=== PATIENT | male | born 1965 | race Caucasian/White ===

== ENCOUNTER 2017-08-31 18:23 | Emergency (ER) | payer MEDICAID ==
[~2017-08-31] VITALS: Ht 190.5 cm; Wt 80.0 kg
[~2017-08-31 18:23] MED LIST: ACET-2006 PO; CLIN-79 PO; GABA-532 PO; INSU100V36 SQ; LANTUS SQ
[2017-08-31 18:26] VITALS: BP 141/81
[2017-08-31] MEDS ORDERED: aspirin 81mg tab.chew PO ONE (18:30)
[2017-08-31 19:01] LABS: BASOPHILS # (AUTO) 0.1 X10'3 (0-0.2); EOSINOPHILS # (AUTO) 1.1 X10'3 (0-0.9); EOSINOPHILS % (AUTO) 10.4 % (0-6); HEMATOCRIT 39.2 % (42.0-52.0); HEMOGLOBIN 13.8 g/dl (14.0-17.9); LYMPHOCYTES # (AUTO) 2.8 X10'3 (1.1-4.8); LYMPHOCYTES % (AUTO) 26.5 % (21-51); MEAN CORPUSCULAR HGB CONC 35.2 % (33.0-36.5); MONOCYTES # (AUTO) 0.7 X10'3 (0-0.9); MONOCYTES % (AUTO) 6.8 % (2-12); NEUTROPHILS # (AUTO) 5.9 X10'3 (1.8-7.7); NEUTROPHILS % (AUTO) 55.3 % (42-75); PLATELET COUNT 216 X10'3 (140-440); RED BLOOD COUNT 4.31 X10'6 (4.70-6.10); RED CELL DISTRIBUTION WIDTH 12.5 % (11.5-14.5); WHITE BLOOD COUNT 10.6 X10'3 (4.5-11.0)
[2017-08-31 19:12] LABS: INR 0.9 INR; PARTIAL THROMBOPLASTIN TIME 25 SECONDS (22-32); PROTHROMBIN TIME 9.7 SECONDS (9.0-12.0)
[2017-08-31 19:16] LABS: ALANINE AMINOTRANSFERASE 26 U/L (12-78); ALBUMIN 3.7 G/DL (3.4-5.0); ALBUMIN/GLOBULIN RATIO 1.1 (1.1-1.5); ALKALINE PHOSPHATASE 71 IU/L (46-116); ANION GAP 13 (8-16); ASPARTATE AMINO TRANSFERASE 18 U/L (10-37); BILIRUBIN,TOTAL 0.3 MG/DL (0.1-1.0); BLOOD UREA NITROGEN 25 MG/DL (7-18); BUN/CREATININE RATIO 24.5 (5.4-32.0); CALCIUM 8.9 MG/DL (8.5-10.1); CHLORIDE 99 MMOL/L (99-107); CREATININE 1.02 MG/DL (0.60-1.10); GLUCOSE 388 MG/DL (70-104); POTASSIUM 4.6 MMOL/L (3.5-5.1); SODIUM 134 MMOL/L (135-145); TOTAL CARBON DIOXIDE 21.8 MMOL/L (24-32); TOTAL PROTEIN 7.1 G/DL (6.4-8.2); eGFR 77 ML/MIN
== END 2017-08-31 21:33 | disposition left against medical advice (07) ==
LOC: ER 18:23
DX: R07.9 Chest pain, unspecified (principal); Z53.21 Procedure and treatment not carried out due to patient leaving prior to being seen by health care provider
CPT/HCPCS: 36415; 71045; 80053; 84484; 85025; 85610; 85730; 93005; 99281

== ENCOUNTER 2019-03-23 09:34 | Emergency (ER) | payer MEDICAID, OTHER ==
[~2019-03-23] VITALS: Ht 190.5 cm; Wt 87.0 kg
[~2019-03-23 09:34] MED LIST changes: -ACET-2006 PO; +ASPI-1265 PO; -CLIN-79 PO; +HUM7525 SQ; -INSU100V36 SQ; +LISI40TA4 PO
[2019-03-23 10:01] VITALS: BP 163/100
[2019-03-23 10:09] LABS: BASOPHILS # (AUTO) 0.1 X10'3 (0-0.2); BASOPHILS % (AUTO) 1.1 % (0-1); EOSINOPHILS # (AUTO) 0.7 X10'3 (0-0.9); EOSINOPHILS % (AUTO) 5.9 % (0-6); HEMATOCRIT 42.6 % (42.0-52.0); HEMOGLOBIN 14.7 g/dl (14.0-17.9); LYMPHOCYTES # (AUTO) 1.9 X10'3 (1.1-4.8); LYMPHOCYTES % (AUTO) 15.6 % (21-51); MEAN CORPUSCULAR HEMOGLOBIN 30.9 PG (27.0-31.0); MEAN CORPUSCULAR HGB CONC 34.5 g/dL (33.0-36.5); MEAN CORPUSCULAR VOLUME 89.5 FL (78-98); MEAN PLATELET VOLUME 8.5 FL (7.4-10.4); MONOCYTES # (AUTO) 0.7 X10'3 (0-0.9); MONOCYTES % (AUTO) 5.5 % (2-12); NEUTROPHILS # (AUTO) 8.7 X10'3 (1.8-7.7); NEUTROPHILS % (AUTO) 71.9 % (42-75); PLATELET COUNT 278 X10'3 (140-440); RED BLOOD COUNT 4.76 X10'6 (4.70-6.10); RED CELL DISTRIBUTION WIDTH 12.7 % (11.5-14.5); WHITE BLOOD COUNT 12.1 X10'3 (4.5-11.0)
[2019-03-23] MEDS ORDERED: enoxaparin 100mg/ml syringe SUBCUT ONE (10:25)
[2019-03-23 10:27] LABS: ALANINE AMINOTRANSFERASE 17 U/L (12-78); ALBUMIN 3.3 G/DL (3.4-5.0); ALBUMIN/GLOBULIN RATIO 0.9 (1.1-1.5); ALKALINE PHOSPHATASE 108 IU/L (46-116); ANION GAP 8 (8-16); ASPARTATE AMINO TRANSFERASE 13 U/L (10-37); BILIRUBIN,TOTAL 0.5 MG/DL (0.1-1.0); BLOOD UREA NITROGEN 16 MG/DL (7-18); BUN/CREATININE RATIO 18.4 (5.4-32.0); CALCIUM 8.8 MG/DL (8.5-10.1); CHLORIDE 102 MMOL/L (99-107); CREATININE 0.87 MG/DL (0.60-1.10); GLUCOSE 254 MG/DL (70-104); POTASSIUM 4.1 MMOL/L (3.5-5.1); SODIUM 135 MMOL/L (135-145); TOTAL CARBON DIOXIDE 24.9 MMOL/L (24-32); TOTAL PROTEIN 7.1 G/DL (6.4-8.2); eGFR > 90 ML/MIN
[2019-03-23] MEDS ORDERED: ipratropium/albuterol 3ml nebule NEB ONE (10:40)
[2019-03-23] MEDS ORDERED: ALBU8.5H8 IH (10:41)
[2019-03-23] MEDS ORDERED: apixaban 5mg tablet PO SCH (20:00)
== END 2019-03-23 12:12 | disposition home or self-care (01) ==
LOC: ER 10:27
DX: J45.901 Unspecified asthma with (acute) exacerbation (principal); I25.10 Atherosclerotic heart disease of native coronary artery without angina pectoris; I25.2 Old myocardial infarction; E11.42 Type 2 diabetes mellitus with diabetic polyneuropathy; F17.210 Nicotine dependence, cigarettes, uncomplicated; I12.9 Hypertensive chronic kidney disease with stage 1 through stage 4 chronic kidney disease, or unspecified chronic kidney disease; E11.22 Type 2 diabetes mellitus with diabetic chronic kidney disease; N18.9 Chronic kidney disease, unspecified; Z86.19 Personal history of other infectious and parasitic diseases; Z85.47 Personal history of malignant neoplasm of testis; Z98.890 Other specified postprocedural states; Z88.6 Allergy status to analgesic agent; Z79.82 Long term (current) use of aspirin; Z79.4 Long term (current) use of insulin; Z79.899 Other long term (current) drug therapy
CPT/HCPCS: 36415; 71045; 80053; 83880; 84484; 85025; 93005; 94640; 99284

== ENCOUNTER 2019-07-24 13:59 | Outpatient (CLI) | payer MEDICAID ==
[~2019-07-24 13:59] MED LIST changes: +ALBU8.5H8 IH
== END 2019-07-24 23:59 | disposition home or self-care (01) ==
LOC: RAD 13:59
PROVIDERS: ATTEND Family Medicine
DX: R56.9 Unspecified convulsions (principal)
CPT/HCPCS: 95816

== ENCOUNTER 2019-12-13 13:31 | Emergency (ER) | payer MEDICAID ==
[~2019-12-13] VITALS: Ht 188 cm; Wt 90.9 kg
[2019-12-13 13:44] VITALS: BP 153/93
--- NOTE | 2019-12-13 13:57 | NUR ---
Spoke with Dr. Castillo regarding patients injury, Dr. Castillo stated to place verbal order for CT head.
[2019-12-13] MEDS ORDERED: ondansetron 4mg rapidly disintigrating tab PO ONE (14:15)
[2019-12-13] MEDS ORDERED: ONDA4TAB6 PO (14:30)
== END 2019-12-13 14:46 | disposition home or self-care (01) ==
LOC: ER 13:32
DX: S06.0X1A Concussion with loss of consciousness of 30 minutes or less, initial encounter (principal); R11.2 Nausea with vomiting, unspecified; I25.10 Atherosclerotic heart disease of native coronary artery without angina pectoris; I25.2 Old myocardial infarction; E11.42 Type 2 diabetes mellitus with diabetic polyneuropathy; I12.0 Hypertensive chronic kidney disease with stage 5 chronic kidney disease or end stage renal disease; E11.22 Type 2 diabetes mellitus with diabetic chronic kidney disease; N18.6 End stage renal disease; Z98.890 Other specified postprocedural states; Z88.6 Allergy status to analgesic agent; Z79.82 Long term (current) use of aspirin; Z79.4 Long term (current) use of insulin; Z79.899 Other long term (current) drug therapy; W22.8XXA Striking against or struck by other objects, initial encounter; Y93.89 Activity, other specified; Y92.89 Other specified places as the place of occurrence of the external cause; Y99.8 Other external cause status
CPT/HCPCS: 70450; 99284

== ENCOUNTER 2020-01-10 14:35 | Inpatient (IN) | payer MEDICAID ==
[~2020-01-10] VITALS: Ht 190.5 cm; Wt 93.2 kg
[~2020-01-10 14:35] MED LIST changes: +ONDA4TAB6 PO
[2020-01-10 15:29] LABS: ALANINE AMINOTRANSFERASE 18 U/L (12-78); ALBUMIN 3.3 G/DL (3.4-5.0); ALBUMIN/GLOBULIN RATIO 0.8 (1.1-1.5); ALKALINE PHOSPHATASE 120 IU/L (46-116); ANION GAP 7 (8-16); ASPARTATE AMINO TRANSFERASE 18 U/L (10-37); BILIRUBIN,TOTAL 0.3 MG/DL (0.1-1.0); BLOOD UREA NITROGEN 8 MG/DL (7-18); BUN/CREATININE RATIO 8.1 (5.4-32.0); CALCIUM 8.6 MG/DL (8.5-10.1); CHLORIDE 106 MMOL/L (99-107); CREATININE 0.99 MG/DL (0.60-1.10); GLUCOSE 101 MG/DL (70-104); POTASSIUM 4.3 MMOL/L (3.5-5.1); SODIUM 139 MMOL/L (135-145); TOTAL CARBON DIOXIDE 26.3 MMOL/L (24-32); TOTAL PROTEIN 7.2 G/DL (6.4-8.2); eGFR 79 ML/MIN
[2020-01-10 15:30] LABS: BASOPHILS # (AUTO) 0.1 X10'3 (0-0.2); BASOPHILS % (AUTO) 1.5 % (0-1); EOSINOPHILS # (AUTO) 0.3 X10'3 (0-0.9); EOSINOPHILS % (AUTO) 3.1 % (0-6); HEMATOCRIT 47.3 % (42.0-52.0); HEMOGLOBIN 16.1 g/dl (14.0-17.9); LYMPHOCYTES # (AUTO) 1.8 X10'3 (1.1-4.8); LYMPHOCYTES % (AUTO) 19.1 % (21-51); MEAN CORPUSCULAR HEMOGLOBIN 31.7 PG (27.0-31.0); MEAN CORPUSCULAR HGB CONC 34.1 g/dL (33.0-36.5); MEAN CORPUSCULAR VOLUME 93.1 FL (78-98); MEAN PLATELET VOLUME 8.5 FL (7.4-10.4); MONOCYTES # (AUTO) 0.8 X10'3 (0-0.9); MONOCYTES % (AUTO) 7.9 % (2-12); NEUTROPHILS # (AUTO) 6.5 X10'3 (1.8-7.7); NEUTROPHILS % (AUTO) 68.4 % (42-75); PLATELET COUNT 271 X10'3 (140-440); RED BLOOD COUNT 5.08 X10'6 (4.70-6.10); RED CELL DISTRIBUTION WIDTH 13.6 % (11.5-14.5); WHITE BLOOD COUNT 9.5 X10'3 (4.5-11.0)
[2020-01-10] MEDS ORDERED: aspirin 81mg tab.chew PO ONE (15:50)
[2020-01-10] MEDS ORDERED: ondansetron/PF 4mg/2ml inj IV ONE (15:50)
[2020-01-10] MEDS ORDERED: metoprolol tartrate 1mg/ml inj IV ONE (15:50)
[2020-01-10] MEDS ORDERED: nitroGLYCERIN 0.4mg SUBLingual tab SL PRN ×2 (15:55→18:35)
[2020-01-10 16:02] LABS: LIPASE 160 U/L (73-393)
[2020-01-10] MEDS ORDERED: iohexol 350MG/ML 100ml bottle IV ONE (16:28)
--- NOTE | 2020-01-10 17:04 | NUR ---
Pt flagged down KHADRA Moss RN, stating he felt his blood sugar was low. Accucheck performed with reading of 40. As pt was feeling as though he would lose consciousness, D50 was given.
--- NOTE | 2020-01-10 17:40 | NUR ---
pt states he feels better after having yogurt and a sandwich.
[2020-01-10] MEDS ORDERED: aminophylline 250mg/10ml inj. IV PRN (18:35)
[2020-01-10] MEDS ORDERED: metoprolol tartrate 1mg/ml inj IV PRN (18:35)
[2020-01-10] MEDS ORDERED: potassium Cl 20 mEq SR tablet PO PRN ×2 (18:35)
[2020-01-10] MEDS ORDERED: magnesium 2GM in 50ml NS 50 ML IV PRN (18:35)
[2020-01-10] MEDS ORDERED: dextrose ORAL solution 15 GM/59 ML bottle PO PRN ×2 (18:35)
[2020-01-10] MEDS ORDERED: ondansetron/PF 4mg/2ml inj IV PRN (18:35)
[2020-01-10] MEDS ORDERED: bisacodyl 10mg suppository rectal RC PRN (18:35)
[2020-01-10] MEDS ORDERED: MESSAGE TO PHARMACY PO ONE (18:35)
[2020-01-10] MEDS ORDERED: magnesium Cl slow-release 64mg tablet PO PRN (18:35)
[2020-01-10] MEDS ORDERED: acetaminophen 650mg rectal suppository RC PRN (18:35)
[2020-01-10] MEDS ORDERED: morphine 2 MG/ML inj. syringe IV PRN ×2 (18:35)
[2020-01-10] MEDS ORDERED: glucagon, human recombinant 1mg kit SUBCUT PRN (18:35)
[2020-01-10] MEDS ORDERED: potassium CL 10mEq/100ml bag 100 ML IV PRN ×2 (18:35)
[2020-01-10] MEDS ORDERED: HYDROcodone/acetaminophen 10/325mg tab PO PRN (18:35)
[2020-01-10] MEDS ORDERED: regadenoson 0.4mg/5ml syringe IV PRN (18:35)
[2020-01-10] MEDS ORDERED: magnesium 4gm in 100ml NS 100 ML IV PRN (18:35)
[2020-01-10] MEDS ORDERED: dextrose 50%-water 50ml dispensing syringe IV PRN ×2 (18:35)
[2020-01-10] MEDS ORDERED: acetaminophen 325mg tablet PO PRN ×2 (18:35)
[2020-01-10] MEDS ORDERED: HYDROcodone/acetaminophen 5mg/325mg tablet PO PRN (18:35)
[2020-01-10] MEDS ORDERED: magnesium hydroxide 30ml (MOM) UD suspension PO PRN (18:35)
[2020-01-10] MEDS ORDERED: insulin Lispro (HumaLOG) vial - multi-dose SQ SCH (18:35)
[2020-01-10] MEDS ORDERED: diphenhydrAMINE 25mg capsule PO PRN (18:35)
[2020-01-10] MEDS ORDERED: mag hydrox/Alum hydrox/simeth 30ml oral suspension PO PRN (18:35)
[2020-01-10] MEDS ORDERED: metoprolol succinate 25mg (24-HOUR) SR. Tablet PO SCH (18:40)
[2020-01-10] MEDS: K and/or MAG REPLACEMENT MC SCH (18:44)
[2020-01-10] MEDS: normal saline 1000ml 1,000 ML IV SCH (18:54)
[2020-01-10] MEDS: metoprolol succinate 25mg (24-HOUR) SR. Tablet PO SCH (18:54)
--- NOTE | 2020-01-10 18:54 | NUR ---
given dinner tray. bp 185/99, metoprolol 50 mg given and no maintenance fluids started, ns @100. awaiting ipa
[2020-01-10 18:59] LABS: HEMOGLOBIN A1C 7.4 % (4.5-6.2)
--- NOTE | 2020-01-10 19:51 | NUR ---
hospitalist at bedside. report called by carine hernandez. pt placed in wheelchair.
[2020-01-10 20:00] VITALS: BP 169/98
[2020-01-10] MEDS: heparin, porcine 5000 units/ml vial SQ SCH (20:00)
[2020-01-10 20:30] VITALS: BP 173/88
[2020-01-10] MEDS ORDERED: insulin glargine (Lantus) pen - multi-dose SQ SCH (21:00)
[2020-01-11] VITALS (16 sets, daily range): BP systolic 142–190; BP diastolic 62–89
--- NOTE | 2020-01-11 03:36 | NUR ---
pt rang call light and requested to get his blood sugar checked, BG 46, D50 25 ml given, orange juice given.
--- NOTE | 2020-01-11 03:39 | NUR ---
NOTIFIED PAGER ID: [phone] MESSAGE: [phone] JASON JACKSON. CRITICAL LOW BLOOD SUGAR OF 46. PUSHED 25ML OF D50 PER HYPOGLYCEMIA PROTOCOL. BLOOD SUGAR 110 NOW
[2020-01-11 04:06] LABS: BASOPHILS # (AUTO) 0.1 X10'3 (0-0.2); EOSINOPHILS # (AUTO) 0.5 X10'3 (0-0.9); EOSINOPHILS % (AUTO) 5.5 % (0-6); HEMATOCRIT 45.3 % (42.0-52.0); HEMOGLOBIN 15.4 g/dl (14.0-17.9); LYMPHOCYTES # (AUTO) 2.4 X10'3 (1.1-4.8); LYMPHOCYTES % (AUTO) 24.4 % (21-51); MEAN CORPUSCULAR HEMOGLOBIN 31.9 PG (27.0-31.0); MEAN CORPUSCULAR HGB CONC 34.1 g/dL (33.0-36.5); MEAN CORPUSCULAR VOLUME 93.7 FL (78-98); MEAN PLATELET VOLUME 8.2 FL (7.4-10.4); MONOCYTES # (AUTO) 0.8 X10'3 (0-0.9); MONOCYTES % (AUTO) 8.2 % (2-12); NEUTROPHILS # (AUTO) 5.9 X10'3 (1.8-7.7); NEUTROPHILS % (AUTO) 60.9 % (42-75); PLATELET COUNT 228 X10'3 (140-440); RED BLOOD COUNT 4.83 X10'6 (4.70-6.10); RED CELL DISTRIBUTION WIDTH 13.6 % (11.5-14.5); WHITE BLOOD COUNT 9.6 X10'3 (4.5-11.0)
[2020-01-11 04:17] LABS: ALANINE AMINOTRANSFERASE 16 U/L (12-78); ALBUMIN 2.9 G/DL (3.4-5.0); ALBUMIN/GLOBULIN RATIO 0.8 (1.1-1.5); ALKALINE PHOSPHATASE 113 IU/L (46-116); ANION GAP 5 (8-16); ASPARTATE AMINO TRANSFERASE 17 U/L (10-37); BILIRUBIN,TOTAL 0.3 MG/DL (0.1-1.0); BLOOD UREA NITROGEN 10 MG/DL (7-18); BUN/CREATININE RATIO 10.5 (5.4-32.0); CALCIUM 8.7 MG/DL (8.5-10.1); CHLORIDE 107 MMOL/L (99-107); CREATININE 0.95 MG/DL (0.60-1.10); GLUCOSE 104 MG/DL (70-104); POTASSIUM 3.9 MMOL/L (3.5-5.1); SODIUM 141 MMOL/L (135-145); TOTAL PROTEIN 6.7 G/DL (6.4-8.2); eGFR 83 ML/MIN
[2020-01-11 04:21] LABS: CHOL/HDL RATIO 2.1 (0.00-4.99); CHOLESTEROL 119 MG/DL (0-200); HDL CHOLESTEROL 57 MG/DL (35-60); LDL CHOLESTEROL 55 MG/DL (50-100); PHOSPHORUS 3.9 MG/DL (2.3-4.5); TRIGLYCERIDES 52 MG/DL (20-135)
[2020-01-11] MEDS: normal saline 1000ml 1,000 ML IV SCH (04:28)
--- NOTE | 2020-01-11 06:13 | NUR ---
Problems reprioritized. Patient report given, questions answered & plan of care reviewed with Raj BRUNSON.
--- NOTE | 2020-01-11 06:16 | NUR ---
Patient in room MED 314. I have received report from NANNETTE Sparks and had the opportunity to ask questions and assume patient care.
--- NOTE | 2020-01-11 07:26 | NUR ---
DR. OREILLY PAGED: PAGER ID: [phone] MESSAGE: [phone]: Rocael JACKSON - scheduled for [facility] this AM. issues with LOW/HIGH BG; 46 @ 0330, currently 309 before breakfast. hx DM1. nurse Misa [phone]
[2020-01-11] MEDS ORDERED: aspirin 81mg tablet.DR PO SCH (08:00)
[2020-01-11] MEDS ORDERED: lisinopril 20mg tablet PO SCH (08:00)
[2020-01-11] MEDS ORDERED: atorvastatin 20mg tablet PO SCH (08:00)
[2020-01-11] MEDS: heparin, porcine 5000 units/ml vial SQ SCH (08:00)
[2020-01-11] MEDS: K and/or MAG REPLACEMENT MC SCH (08:14)
[2020-01-11] MEDS: metoprolol succinate 25mg (24-HOUR) SR. Tablet PO SCH (08:18)
[2020-01-11] MEDS ORDERED: pantoprazole 40mg Tablet.DR PO SCH (09:50)
--- NOTE | 2020-01-11 10:35 | NUR ---
PATIENT TO NUC MED FOR HAILEE
--- NOTE | 2020-01-11 12:42 | NUR ---
PAGER ID: [phone] MESSAGE: [phone] Rocael Benedict: BP 173. NANNETTE Anthony Ext [phone]
--- NOTE | 2020-01-11 13:39 | NUR ---
dr. perez paged: PAGER ID: [phone] MESSAGE: [phone]: brian crowder (-), low EF 38%; ok to eat? nurse morenita [phone]
[2020-01-11] MEDS ORDERED: PANT40TA4 PO (13:43)
[2020-01-11] MEDS ORDERED: ASPI-1071 PO (13:43)
--- NOTE | 2020-01-11 13:50 | NUR ---
patient left AMA, refused to sign AMA paperwork, witnessed patient rip PIV from arm and walk out hospital lobby entrance
[2020-01-11] MEDS ORDERED: METO-395 PO (13:56)
--- NOTE | 2020-01-11 14:10 | NUR ---
Patient left ama refused to sign papers. Took IV out himself.
--- NOTE | 2020-01-11 14:30 | NUR ---
DM Consult: Pt admit w/ chest pain hx T1DM A1C 7.4. Pt has had low Glu this admit without receiving any Glu/meal coverage fluctuating from 40's twice up to 309 currently following dex administration. Pt does have heavy etoh hx which may explain frequent low's; RD d/w RN regarding thiamin, folic, MVI if MD agreeable. Hx diarrhea taking creon at home for pancreatic insufficiency per EMR; diarrhea also could be r/t etoh use as well. Pt seen by RD for written/verbal DM ed w/ RD contact information provided. Pt has had insulin pump 15 years ago but did not like it so uses injections. RD encouraged pt to d/w PCP regarding sap consultant for optimal DM management. Pt passive during ed and reports no questions at this time. Addendum: 01/11/20 at [address] Amended: Links added.
== END 2020-01-11 14:00 | disposition left against medical advice (07) | DRG 198 ==
LOC: ER 14:36 → ED HOLD 16:44 → MED 3N 20:00
PROVIDERS: ADMIT Family Medicine; ATTEND Family Medicine
PROC: 4A02XM4 Measurement of Cardiac Total Activity, External Approach (ICD-10-PCS; principal; 2020-01-11)
PROC: 3E033HZ Introduction of Radioactive Substance into Peripheral Vein, Percutaneous Approach (ICD-10-PCS; 2020-01-11)
DX: R07.89 Other chest pain (principal); I12.9 Hypertensive chronic kidney disease with stage 1 through stage 4 chronic kidney disease, or unspecified chronic kidney disease; I25.10 Atherosclerotic heart disease of native coronary artery without angina pectoris; N18.9 Chronic kidney disease, unspecified; J44.9 Chronic obstructive pulmonary disease, unspecified; I16.0 Hypertensive urgency; E10.649 Type 1 diabetes mellitus with hypoglycemia without coma; E10.42 Type 1 diabetes mellitus with diabetic polyneuropathy; E10.22 Type 1 diabetes mellitus with diabetic chronic kidney disease; E10.311 Type 1 diabetes mellitus with unspecified diabetic retinopathy with macular edema; I25.2 Old myocardial infarction; Z87.11 Personal history of peptic ulcer disease; Z86.73 Personal history of transient ischemic attack (TIA), and cerebral infarction without residual deficits; Z85.47 Personal history of malignant neoplasm of testis; Z83.3 Family history of diabetes mellitus; Z82.49 Family history of ischemic heart disease and other diseases of the circulatory system; Z79.899 Other long term (current) drug therapy; Z79.4 Long term (current) use of insulin; Z72.0 Tobacco use; Z53.29 Procedure and treatment not carried out because of patient's decision for other reasons
CPT/HCPCS: 36415; 71045; 71275; 78452; 80053; 80061; 82948; 83036; 83690; 83735; 83880; 84100; 84484; 85025; 87081; 93005; 93017; 93306; 99285; A9500; G0378; J0280; J1815; J2405; J2785; J3490; J7030; Q9967

== ENCOUNTER 2020-02-17 21:31 | Inpatient (IN) | payer MEDICAID ==
[~2020-02-17] VITALS: Ht 190.5 cm; Wt 95.9 kg
[~2020-02-17 21:31] MED LIST changes: -ALBU8.5H8 IH; +ASPI-1071 PO; -ASPI-1265 PO; -GABA-532 PO; +METO-395 PO; -ONDA4TAB6 PO; +PANT40TA54 PO
[2020-02-17 22:16] LABS: BASOPHILS # (AUTO) 0.1 X10'3 (0-0.2); BASOPHILS % (AUTO) 0.7 % (0-1); EOSINOPHILS % (AUTO) 7.6 % (0-6); HEMOGLOBIN 15.2 g/dl (14.0-17.9); LYMPHOCYTES # (AUTO) 2.5 X10'3 (1.1-4.8); LYMPHOCYTES % (AUTO) 19.3 % (21-51); MEAN CORPUSCULAR HEMOGLOBIN 32.4 PG (27.0-31.0); MEAN CORPUSCULAR HGB CONC 33.9 g/dL (33.0-36.5); MEAN CORPUSCULAR VOLUME 95.7 FL (78-98); MEAN PLATELET VOLUME 8.9 FL (7.4-10.4); MONOCYTES # (AUTO) 0.8 X10'3 (0-0.9); MONOCYTES % (AUTO) 6.2 % (2-12); NEUTROPHILS # (AUTO) 8.5 X10'3 (1.8-7.7); NEUTROPHILS % (AUTO) 66.2 % (42-75); PLATELET COUNT 269 X10'3 (140-440); WHITE BLOOD COUNT 12.9 X10'3 (4.5-11.0)
[2020-02-17 22:43] LABS: ALANINE AMINOTRANSFERASE 22 U/L (12-78); ALBUMIN 3.1 G/DL (3.4-5.0); ALBUMIN/GLOBULIN RATIO 0.8 (1.1-1.5); ALKALINE PHOSPHATASE 93 IU/L (46-116); ANION GAP 6 (8-16); ASPARTATE AMINO TRANSFERASE 16 U/L (10-37); BILIRUBIN,TOTAL 0.2 MG/DL (0.1-1.0); BLOOD UREA NITROGEN 30 MG/DL (7-18); CALCIUM 9.1 MG/DL (8.5-10.1); CHLORIDE 104 MMOL/L (99-107); CREATININE 1.11 MG/DL (0.60-1.10); GLUCOSE 208 MG/DL (70-104); POTASSIUM 4.3 MMOL/L (3.5-5.1); SODIUM 137 MMOL/L (135-145); TOTAL CARBON DIOXIDE 27.4 MMOL/L (24-32); TOTAL PROTEIN 6.8 G/DL (6.4-8.2); eGFR 69 ML/MIN
[2020-02-18] MEDS ORDERED: potassium Cl 20 mEq SR tablet PO PRN ×2 (00:05)
[2020-02-18] MEDS ORDERED: nitroGLYCERIN 0.4mg SUBLingual tab SL PRN (00:05)
[2020-02-18] MEDS ORDERED: HYDROcodone/acetaminophen 10/325mg tab PO PRN (00:05)
[2020-02-18] MEDS ORDERED: LORazepam 2 mg/ml vial IV PRN (00:05)
[2020-02-18] MEDS ORDERED: ondansetron/PF 4mg/2ml inj IV PRN (00:05)
[2020-02-18] MEDS ORDERED: aminophylline 250mg/10ml inj. IV PRN (00:05)
[2020-02-18] MEDS ORDERED: magnesium 2GM in 50ml NS 50 ML IV PRN (00:05)
[2020-02-18] MEDS ORDERED: metoprolol tartrate 1mg/ml inj IV PRN (00:05)
[2020-02-18] MEDS ORDERED: LORazepam 1 MG tablet PO PRN (00:05)
[2020-02-18] MEDS ORDERED: acetaminophen 325mg tablet PO PRN ×2 (00:05)
[2020-02-18] MEDS ORDERED: potassium CL 10mEq/100ml bag 100 ML IV PRN ×2 (00:05)
[2020-02-18] MEDS ORDERED: HYDROcodone/acetaminophen 5mg/325mg tablet PO PRN (00:05)
[2020-02-18] MEDS ORDERED: morphine 2 MG/ML inj. syringe IV PRN ×2 (00:05)
[2020-02-18] MEDS ORDERED: dextrose 50%-water 50ml dispensing syringe IV PRN ×3 (00:05→00:20)
[2020-02-18] MEDS ORDERED: magnesium Cl slow-release 64mg tablet PO PRN (00:05)
[2020-02-18] MEDS ORDERED: magnesium 4gm in 100ml NS 100 ML IV PRN (00:05)
[2020-02-18] MEDS ORDERED: glucagon, human recombinant 1mg kit SUBCUT PRN (00:20)
[2020-02-18] MEDS ORDERED: MESSAGE TO PHARMACY PO ONE (00:20)
[2020-02-18] MEDS ORDERED: dextrose ORAL solution 15 GM/59 ML bottle PO PRN ×2 (00:20)
[2020-02-18] MEDS ORDERED: insulin Lispro (HumaLOG) vial - multi-dose SQ SCH (00:20)
[2020-02-18] MEDS: normal saline 1000ml 1,000 ML IV SCH ×2 (00:42→10:05)
[2020-02-18 02:02] LABS: HEMOGLOBIN A1C 7.8 % (4.5-6.2)
--- NOTE | 2020-02-18 03:11 | NUR ---
Patient in room ED 8. I have received report from Renetta BRUNSON and had the opportunity to ask questions and assume patient care.
[2020-02-18 04:24] LABS: URINE AMPHETAMINE SCREEN NEGATIVE (Neg); URINE BARBITUATE SCREEN NEGATIVE (Neg); URINE BENZODIAZEPINES SCREEN NEGATIVE (Neg); URINE CANNABINOID SCREEN NEGATIVE (Neg); URINE COCAINE SCREEN NEGATIVE (Neg); URINE METHADONE SCREEN NEGATIVE (Neg); URINE OPIATE SCREEN NEGATIVE (Neg); URINE PHENCYCLIDINE SCREEN NEGATIVE (Neg)
[2020-02-18 04:45] VITALS: BP 136/62
[2020-02-18] MEDS ORDERED: regadenoson 0.4mg/5ml syringe IV ONE (06:00)
--- NOTE | 2020-02-18 06:05 | NUR ---
Patient in room PCU 3013. I have received report from Merlene BRUNSON and had the opportunity to ask questions and assume patient care. Patient resting in bed, offers no complaints, will continue to monitor.
--- NOTE | 2020-02-18 06:06 | NUR ---
Problems reprioritized. Patient report given, questions answered & plan of care reviewed with Kristin BRUNSON.
[2020-02-18 06:50] VITALS: BP 158/73
[2020-02-18] MEDS ORDERED: pantoprazole 40mg Tablet.DR PO SCH (08:00)
[2020-02-18] MEDS ORDERED: heparin, porcine 5000 units/ml vial SQ SCH (08:00)
[2020-02-18] MEDS ORDERED: K and/or MAG REPLACEMENT MC SCH (08:00)
--- NOTE | 2020-02-18 09:22 | NUR ---
promotional table spacer PAGER ID: [phone] MESSAGE: Jak Vizcaino. Pt had negative farzaneh Jan 10, Nuc. Med said they did not want to do the ordered Farzaneh, Please advise. Kristin [phone]
--- NOTE | 2020-02-18 12:29 | NUR ---
Patient was discharge home at 1223. PIV was removed and tele was d/c'd, all belongings were sent with patient, discharge education and packet was reviewed before signing, and patient left via private vehicle.
[2020-02-18] MEDS ORDERED: insulin glargine (Lantus) pen - multi-dose SQ SCH (21:00)
[2020-02-18] MEDS ORDERED: temazepam 15mg capsule PO PRN (21:00)
== END 2020-02-18 12:23 | disposition home or self-care (01) | DRG 198 ==
LOC: ER 21:32 → ED HOLD 02-18 00:05 → PCU 3S 02-18 04:00
PROVIDERS: ADMIT Internal Medicine; ATTEND Family Medicine
DX: I25.110 Atherosclerotic heart disease of native coronary artery with unstable angina pectoris (principal); E10.22 Type 1 diabetes mellitus with diabetic chronic kidney disease; E10.42 Type 1 diabetes mellitus with diabetic polyneuropathy; I50.1 Left ventricular failure, unspecified; E10.65 Type 1 diabetes mellitus with hyperglycemia; F17.210 Nicotine dependence, cigarettes, uncomplicated; I13.0 Hypertensive heart and chronic kidney disease with heart failure and stage 1 through stage 4 chronic kidney disease, or unspecified chronic kidney disease; B19.20 Unspecified viral hepatitis C without hepatic coma; I25.2 Old myocardial infarction; Z87.11 Personal history of peptic ulcer disease; Z88.8 Allergy status to other drugs, medicaments and biological substances; Z82.49 Family history of ischemic heart disease and other diseases of the circulatory system; Z82.5 Family history of asthma and other chronic lower respiratory diseases; Z72.89 Other problems related to lifestyle
CPT/HCPCS: 36415; 71045; 80053; 80305; 82948; 83036; 83880; 84484; 85025; 87081; 93005; 96374; 99285; G0378; J1815; J7030

== ENCOUNTER 2020-03-23 11:24 | Emergency (ER) | payer MEDICAID ==
[~2020-03-23] VITALS: Ht 190.5 cm; Wt 89.0 kg
[2020-03-23 11:30] VITALS: BP 174/99
== END 2020-03-23 13:30 | disposition left against medical advice (07) ==
LOC: ER 11:25
DX: Z98.890 Other specified postprocedural states (principal); Z53.21 Procedure and treatment not carried out due to patient leaving prior to being seen by health care provider

== ENCOUNTER 2021-01-17 06:45 | Emergency (ER) | payer MEDICAID ==
[~2021-01-17] VITALS: Ht 190.5 cm; Wt 86.4 kg
[~2021-01-17 06:45] MED LIST changes: +LISI40TA13 PO; -LISI40TA4 PO
[2021-01-17 06:49] VITALS: BP 177/96
== END 2021-01-17 12:03 | disposition home or self-care (01) ==
LOC: ER 06:46
DX: S89.92XA Unspecified injury of left lower leg, initial encounter (principal); M25.462 Effusion, left knee; M79.605 Pain in left leg; E11.42 Type 2 diabetes mellitus with diabetic polyneuropathy; I25.10 Atherosclerotic heart disease of native coronary artery without angina pectoris; I25.2 Old myocardial infarction; I12.9 Hypertensive chronic kidney disease with stage 1 through stage 4 chronic kidney disease, or unspecified chronic kidney disease; E11.22 Type 2 diabetes mellitus with diabetic chronic kidney disease; F17.200 Nicotine dependence, unspecified, uncomplicated; N18.9 Chronic kidney disease, unspecified; Z86.19 Personal history of other infectious and parasitic diseases; Z87.11 Personal history of peptic ulcer disease; Z85.47 Personal history of malignant neoplasm of testis; Z98.890 Other specified postprocedural states; Z72.89 Other problems related to lifestyle; Z88.6 Allergy status to analgesic agent; Z79.82 Long term (current) use of aspirin; Z79.4 Long term (current) use of insulin; Z79.899 Other long term (current) drug therapy; X58.XXXA Exposure to other specified factors, initial encounter; Y93.89 Activity, other specified; Y92.89 Other specified places as the place of occurrence of the external cause; Y99.8 Other external cause status
CPT/HCPCS: 73564; 93971; 99284

== ENCOUNTER 2021-05-18 02:02 | Emergency (ER) | payer MEDICAID ==
[~2021-05-18] VITALS: Ht 190.5 cm; Wt 109.9 kg
[2021-05-18] MEDS ORDERED: nitroGLYCERIN 0.4mg/hour patch TD ONE (02:55)
[2021-05-18] MEDS ORDERED: aspirin 81mg tab.chew PO ONE (02:55)
[2021-05-18 03:32] LABS: BASOPHILS # (AUTO) 0.1 X10'3 (0-0.2); BASOPHILS % (AUTO) 1.3 % (0-1); EOSINOPHILS # (AUTO) 0.7 X10'3 (0-0.9); EOSINOPHILS % (AUTO) 7.2 % (0-6); HEMATOCRIT 41.9 % (42.0-52.0); HEMOGLOBIN 14.1 g/dl (14.0-17.9); LYMPHOCYTES # (AUTO) 1.7 X10'3 (1.1-4.8); LYMPHOCYTES % (AUTO) 18.7 % (21-51); MEAN CORPUSCULAR HEMOGLOBIN 30.7 PG (27.0-31.0); MEAN CORPUSCULAR HGB CONC 33.7 g/dL (33.0-36.5); MEAN CORPUSCULAR VOLUME 91.1 FL (78-98); MEAN PLATELET VOLUME 8.6 FL (7.4-10.4); MONOCYTES # (AUTO) 0.8 X10'3 (0-0.9); MONOCYTES % (AUTO) 8.8 % (2-12); NEUTROPHILS # (AUTO) 5.9 X10'3 (1.8-7.7); PLATELET COUNT 258 X10'3 (140-440); RED CELL DISTRIBUTION WIDTH 13.9 % (11.5-14.5); WHITE BLOOD COUNT 9.3 X10'3 (4.5-11.0)
[2021-05-18 03:37] LABS: ALANINE AMINOTRANSFERASE 44 U/L (12-78); ALBUMIN 3.4 G/DL (3.4-5.0); ALBUMIN/GLOBULIN RATIO 0.9 (1.1-1.5); ALKALINE PHOSPHATASE 154 IU/L (46-116); ANION GAP 10 (8-16); ASPARTATE AMINO TRANSFERASE 28 U/L (10-37); BILIRUBIN,TOTAL 0.3 MG/DL (0.1-1.0); BLOOD UREA NITROGEN 23 MG/DL (7-18); BUN/CREATININE RATIO 19.7 (5.4-32.0); CALCIUM 9.1 MG/DL (8.5-10.1); CHLORIDE 105 MMOL/L (99-107); CREATININE 1.17 MG/DL (0.60-1.10); GLUCOSE 133 MG/DL (70-104); POTASSIUM 4.1 MMOL/L (3.5-5.1); SODIUM 142 MMOL/L (135-145); TOTAL PROTEIN 7.3 G/DL (6.4-8.2); eGFR 65 ML/MIN
[2021-05-18 04:30] VITALS: BP 138/86
== END 2021-05-18 07:48 | disposition home or self-care (01) ==
LOC: ER 02:03
DX: R07.89 Other chest pain (principal); R10.13 Epigastric pain; I25.10 Atherosclerotic heart disease of native coronary artery without angina pectoris; I25.2 Old myocardial infarction; I12.9 Hypertensive chronic kidney disease with stage 1 through stage 4 chronic kidney disease, or unspecified chronic kidney disease; E10.22 Type 1 diabetes mellitus with diabetic chronic kidney disease; N18.9 Chronic kidney disease, unspecified; Z88.6 Allergy status to analgesic agent; Z79.82 Long term (current) use of aspirin; Z79.899 Other long term (current) drug therapy
CPT/HCPCS: 36415; 71045; 80053; 83880; 84484; 85025; 93005; 99285

== ENCOUNTER 2021-06-21 16:24 | Emergency (ER) | payer MEDICAID ==
[~2021-06-21] VITALS: Ht 190.5 cm; Wt 109.0 kg
--- NOTE | 2021-06-21 16:30 | NUR ---
Pt has an insulin pump on his R chest. His glucose is 95, per his machine.
--- NOTE | 2021-06-21 16:38 | NUR ---
Pt is clutching the L side of his chest. "My left arm is numb."
--- NOTE | 2021-06-21 16:45 | NUR ---
Placed on a medical affairs manager.
[2021-06-21] MEDS ORDERED: ondansetron/PF 4mg/2ml inj IV ONE (17:00)
[2021-06-21] MEDS ORDERED: aspirin 81mg tab.chew PO ONE (17:00)
[2021-06-21 17:07] LABS: BASOPHILS # (AUTO) 0.1 X10'3 (0-0.2); BASOPHILS % (AUTO) 1.2 % (0-1); EOSINOPHILS # (AUTO) 0.8 X10'3 (0-0.9); EOSINOPHILS % (AUTO) 8.6 % (0-6); HEMATOCRIT 40.2 % (42.0-52.0); HEMOGLOBIN 13.7 g/dl (14.0-17.9); LYMPHOCYTES # (AUTO) 2.7 X10'3 (1.1-4.8); LYMPHOCYTES % (AUTO) 27.5 % (21-51); MEAN CORPUSCULAR HEMOGLOBIN 30.8 PG (27.0-31.0); MEAN CORPUSCULAR VOLUME 90.6 FL (78-98); MONOCYTES # (AUTO) 0.8 X10'3 (0-0.9); MONOCYTES % (AUTO) 8.7 % (2-12); NEUTROPHILS # (AUTO) 5.2 X10'3 (1.8-7.7); PLATELET COUNT 256 X10'3 (140-440); RED BLOOD COUNT 4.44 X10'6 (4.70-6.10); RED CELL DISTRIBUTION WIDTH 13.5 % (11.5-14.5); WHITE BLOOD COUNT 9.7 X10'3 (4.5-11.0)
[2021-06-21 17:23] LABS: ALANINE AMINOTRANSFERASE 38 U/L (12-78); ALBUMIN 3.3 G/DL (3.4-5.0); ALBUMIN/GLOBULIN RATIO 0.9 (1.1-1.5); ALKALINE PHOSPHATASE 124 IU/L (46-116); ANION GAP 10 (8-16); ASPARTATE AMINO TRANSFERASE 20 U/L (10-37); BILIRUBIN,TOTAL 0.4 MG/DL (0.1-1.0); BLOOD UREA NITROGEN 21 MG/DL (7-18); BUN/CREATININE RATIO 20.6 (5.4-32.0); CALCIUM 8.6 MG/DL (8.5-10.1); CHLORIDE 109 MMOL/L (99-107); CREATININE 1.02 MG/DL (0.60-1.10); GLUCOSE 106 MG/DL (70-104); POTASSIUM 4.4 MMOL/L (3.5-5.1); SODIUM 141 MMOL/L (135-145); TOTAL CARBON DIOXIDE 22.5 MMOL/L (24-32); eGFR 76 ML/MIN
[2021-06-21 17:30] VITALS: BP 117/67
== END 2021-06-21 21:05 | disposition home or self-care (01) ==
LOC: ER 16:25
DX: R07.9 Chest pain, unspecified (principal); R11.10 Vomiting, unspecified; I11.9 Hypertensive heart disease without heart failure; I13.10 Hypertensive heart and chronic kidney disease without heart failure, with stage 1 through stage 4 chronic kidney disease, or unspecified chronic kidney disease; E13.22 Other specified diabetes mellitus with diabetic chronic kidney disease; N18.9 Chronic kidney disease, unspecified; Z88.6 Allergy status to analgesic agent; Z85.47 Personal history of malignant neoplasm of testis
CPT/HCPCS: 36415; 71045; 80053; 83880; 84484; 85025; 93005; 96374; 99285; J2405

== ENCOUNTER 2021-08-20 09:15 | Emergency (ER) | payer MEDICAID ==
[~2021-08-20] VITALS: Ht 190.5 cm; Wt 250.0 kg
--- NOTE | 2021-08-20 09:34 | NUR ---
PT BG METER READS 116.
[2021-08-20] MEDS ORDERED: NPH, human insulin isophane inj. SQ ONE (09:40)
[2021-08-20] MEDS ORDERED: ringers solution, lacted 1,000 ML IV ONE (09:45)
--- NOTE | 2021-08-20 09:45 | NUR ---
Pt turned off his insulin infusion pump.
[2021-08-20 09:57] LABS: BASOPHILS # (AUTO) 0.2 X10'3 (0-0.2); BASOPHILS % (AUTO) 1.9 % (0-1); EOSINOPHILS # (AUTO) 0.9 X10'3 (0-0.9); EOSINOPHILS % (AUTO) 9.8 % (0-6); HEMATOCRIT 42.7 % (42.0-52.0); HEMOGLOBIN 14.7 g/dl (14.0-17.9); LYMPHOCYTES % (AUTO) 21.9 % (21-51); MEAN CORPUSCULAR HEMOGLOBIN 31.5 PG (27.0-31.0); MEAN CORPUSCULAR HGB CONC 34.4 g/dL (33.0-36.5); MEAN CORPUSCULAR VOLUME 91.5 FL (78-98); MONOCYTES # (AUTO) 0.7 X10'3 (0-0.9); MONOCYTES % (AUTO) 7.8 % (2-12); NEUTROPHILS # (AUTO) 5.4 X10'3 (1.8-7.7); NEUTROPHILS % (AUTO) 58.6 % (42-75); PLATELET COUNT 260 X10'3 (140-440); RED BLOOD COUNT 4.67 X10'6 (4.70-6.10); RED CELL DISTRIBUTION WIDTH 13.4 % (11.5-14.5); WHITE BLOOD COUNT 9.2 X10'3 (4.5-11.0)
[2021-08-20] MEDS ORDERED: CLOB15OI3 TOP (10:09)
[2021-08-20] MEDS ORDERED: GLUC1KIT (10:09)
[2021-08-20] MEDS ORDERED: ATOR-2 PO (10:09)
[2021-08-20] MEDS ORDERED: AMLO10TA48 PO (10:09)
[2021-08-20] MEDS ORDERED: HYDR12.55 PO (10:09)
[2021-08-20] MEDS ORDERED: AMLO-708 PO (10:09)
[2021-08-20] MEDS ORDERED: CARV-50 PO (10:09)
[2021-08-20] MEDS ORDERED: CLOP75TA34 PO (10:09)
[2021-08-20] MEDS ORDERED: TIOT18CA3 INH (10:09)
[2021-08-20] MEDS ORDERED: CARV25TA2 PO (10:09)
[2021-08-20] MEDS ORDERED: INSU100V30 SQ (10:09)
[2021-08-20] MEDS ORDERED: LORA10TA7 PO (10:09)
[2021-08-20] MEDS ORDERED: IRBE300T18 PO (10:09)
[2021-08-20] MEDS ORDERED: INSU100V40 SQ (10:09)
[2021-08-20 10:12] LABS: ALANINE AMINOTRANSFERASE 40 U/L (12-78); ALBUMIN 3.3 G/DL (3.4-5.0); ALBUMIN/GLOBULIN RATIO 0.8 (1.1-1.5); ALKALINE PHOSPHATASE 117 IU/L (46-116); ASPARTATE AMINO TRANSFERASE 16 U/L (10-37); BILIRUBIN,TOTAL 0.4 MG/DL (0.1-1.0); BLOOD UREA NITROGEN 20 MG/DL (7-18); BUN/CREATININE RATIO 20.2 (5.4-32.0); CALCIUM 8.8 MG/DL (8.5-10.1); CHLORIDE 101 MMOL/L (99-107); CREATININE 0.99 MG/DL (0.60-1.10); GLUCOSE 304 MG/DL (70-104); LIPASE 311 U/L (73-393); POTASSIUM 4.5 MMOL/L (3.5-5.1); SODIUM 136 MMOL/L (135-145); TOTAL PROTEIN 7.2 G/DL (6.4-8.2); eGFR 79 ML/MIN
[2021-08-20 10:21] LABS: ANION GAP 11 (8-16); TOTAL CARBON DIOXIDE 24.4 MMOL/L (24-32)
--- NOTE | 2021-08-20 10:47 | NUR ---
Dr. Landeros stated that it is ok for the patient to turn his insulin pump (basal rate 1.5units/hour) back on.
[2021-08-20 11:02] LABS: CLARITY,URINE CLEAR (Clear); GLUCOSE, URINE >=1000 mg/dl (Neg); KETONES,URINE NEGATIVE (Neg); LEUKOCYTE ESTERASE ,URINE NEGATIVE (Neg); NITRITES, URINE NEGATIVE (Neg); OCCULT BLOOD,URINE SMALL (Neg); PROTEIN,URINE 30 mg/dl (Neg); UROBILINOGEN,URINE 0.2 E.U/dL (0.2-1.0)
[2021-08-20 11:06] LABS: COLOR,URINE STRAW (Yellow); UA COLLECTION TYPE CLN CATCH MIDSTREAM
[2021-08-20 11:10] LABS: MUCUS STRANDS FEW /LPF (Neg); SQUAMOUS EPITHELIAL CELL,UR FEW /LPF (FEW)
[2021-08-20 11:11] LABS: BACTERIA,URINE 1+ /HPF (Neg); WBC,URINE 0-4 /HPF (0-4)
--- NOTE | 2021-08-20 11:43 | NUR ---
Pt given and understands d/c instructions. Ambulatory with crutches and leg braces. IV d/c'd, catheter was intact.
[2021-08-20 11:44] VITALS: BP 143/84
== END 2021-08-20 11:46 | disposition home or self-care (01) ==
LOC: ER 09:16
DX: E11.649 Type 2 diabetes mellitus with hypoglycemia without coma (principal); E86.0 Dehydration; I13.10 Hypertensive heart and chronic kidney disease without heart failure, with stage 1 through stage 4 chronic kidney disease, or unspecified chronic kidney disease; E13.22 Other specified diabetes mellitus with diabetic chronic kidney disease; N18.9 Chronic kidney disease, unspecified; Z79.4 Long term (current) use of insulin; Z88.6 Allergy status to analgesic agent; Z79.899 Other long term (current) drug therapy
CPT/HCPCS: 36415; 71045; 80053; 81001; 82948; 83690; 85025; 96360; 96372; 99284; J1815; J7120

== ENCOUNTER 2021-09-21 15:47 | Emergency (ER) | payer MEDICAID ==
[~2021-09-21] VITALS: Ht 190.5 cm; Wt 113.6 kg
[~2021-09-21 15:47] MED LIST changes: +AMLO-708 PO; +AMLO10TA48 PO; +ATOR-2 PO; +CARV-50 PO; +CARV25TA2 PO; +CLOB15OI3 TOP; +CLOP75TA34 PO; +GLUC1KIT; -HUM7525 SQ; +HYDR12.55 PO; +INSU100V30 SQ; +INSU100V40 SQ; +IRBE300T18 PO; -LANTUS SQ; -LISI40TA13 PO; +LORA10TA7 PO; -PANT40TA54 PO; +TIOT18CA3 INH
[2021-09-21 16:32] LABS: BASOPHILS % (AUTO) 0.2 % (0-1); EOSINOPHILS % (AUTO) 0.1 % (0-6); HEMATOCRIT 40.1 % (42.0-52.0); HEMOGLOBIN 13.6 g/dl (14.0-17.9); LYMPHOCYTES # (AUTO) 1.5 X10'3 (1.1-4.8); LYMPHOCYTES % (AUTO) 10.9 % (21-51); MEAN CORPUSCULAR HEMOGLOBIN 30.9 PG (27.0-31.0); MEAN CORPUSCULAR HGB CONC 33.9 g/dL (33.0-36.5); MEAN PLATELET VOLUME 9.3 FL (7.4-10.4); NEUTROPHILS # (AUTO) 11.1 X10'3 (1.8-7.7); NEUTROPHILS % (AUTO) 81.8 % (42-75); PLATELET COUNT 239 X10'3 (140-440); RED BLOOD COUNT 4.41 X10'6 (4.70-6.10); RED CELL DISTRIBUTION WIDTH 13.5 % (11.5-14.5); WHITE BLOOD COUNT 13.5 X10'3 (4.5-11.0)
[2021-09-21 16:36] LABS: APTT 24 SECONDS (22-32)
[2021-09-21 16:39] LABS: ALANINE AMINOTRANSFERASE 44 U/L (12-78); ALBUMIN 3.4 G/DL (3.4-5.0); ALBUMIN/GLOBULIN RATIO 0.9 (1.1-1.5); ALKALINE PHOSPHATASE 111 IU/L (46-116); ANION GAP 12 (8-16); ASPARTATE AMINO TRANSFERASE 24 U/L (10-37); BILIRUBIN,TOTAL 0.4 MG/DL (0.1-1.0); BLOOD UREA NITROGEN 31 MG/DL (7-18); BUN/CREATININE RATIO 22.8 (5.4-32.0); CALCIUM 8.6 MG/DL (8.5-10.1); CHLORIDE 107 MMOL/L (99-107); CREATININE 1.36 MG/DL (0.60-1.10); GLUCOSE 242 MG/DL (70-104); POTASSIUM 4.2 MMOL/L (3.5-5.1); SODIUM 141 MMOL/L (135-145); TOTAL CARBON DIOXIDE 22.4 MMOL/L (24-32); TOTAL PROTEIN 7.1 G/DL (6.4-8.2); eGFR 55 ML/MIN
[2021-09-21 18:34] VITALS: BP 162/91
== END 2021-09-21 19:08 | disposition home or self-care (01) ==
LOC: ER 15:48
DX: S40.022A Contusion of left upper arm, initial encounter (principal); S40.021A Contusion of right upper arm, initial encounter; I13.11 Hypertensive heart and chronic kidney disease without heart failure, with stage 5 chronic kidney disease, or end stage renal disease; E11.22 Type 2 diabetes mellitus with diabetic chronic kidney disease; N18.6 End stage renal disease; X58.XXXA Exposure to other specified factors, initial encounter; Y93.9 Activity, unspecified; Y92.89 Other specified places as the place of occurrence of the external cause; Y99.8 Other external cause status
CPT/HCPCS: 36415; 71045; 80053; 83880; 84484; 85025; 85610; 85730; 93005; 99285

== ENCOUNTER 2021-10-01 12:25 | Emergency (ER) | payer MEDICAID ==
[~2021-10-01] VITALS: Ht 190.5 cm; Wt 113.6 kg
[2021-10-01] MEDS ORDERED: normal saline 1000ML IV soln IVB ONE (12:40)
[2021-10-01 12:41] LABS: BASOPHILS # (AUTO) 0.1 X10'3 (0-0.2); BASOPHILS % (AUTO) 0.8 % (0-1); EOSINOPHILS # (AUTO) 0.4 X10'3 (0-0.9); EOSINOPHILS % (AUTO) 2.3 % (0-6); HEMATOCRIT 41.5 % (42.0-52.0); HEMOGLOBIN 13.6 g/dl (14.0-17.9); LYMPHOCYTES # (AUTO) 1.5 X10'3 (1.1-4.8); LYMPHOCYTES % (AUTO) 9.3 % (21-51); MEAN CORPUSCULAR HGB CONC 32.7 g/dL (33.0-36.5); MEAN CORPUSCULAR VOLUME 94.7 FL (78-98); MEAN PLATELET VOLUME 9.4 FL (7.4-10.4); MONOCYTES # (AUTO) 1.1 X10'3 (0-0.9); MONOCYTES % (AUTO) 6.8 % (2-12); NEUTROPHILS # (AUTO) 12.9 X10'3 (1.8-7.7); NEUTROPHILS % (AUTO) 80.8 % (42-75); PLATELET COUNT 249 X10'3 (140-440); RED BLOOD COUNT 4.38 X10'6 (4.70-6.10); RED CELL DISTRIBUTION WIDTH 13.7 % (11.5-14.5); WHITE BLOOD COUNT 15.9 X10'3 (4.5-11.0)
[2021-10-01 12:57] LABS: ALANINE AMINOTRANSFERASE 55 U/L (12-78); ALBUMIN 3.6 G/DL (3.4-5.0); ALKALINE PHOSPHATASE 145 IU/L (46-116); ANION GAP 26 (8-16); ASPARTATE AMINO TRANSFERASE 32 U/L (10-37); BLOOD UREA NITROGEN 38 MG/DL (7-18); BUN/CREATININE RATIO 19.8 (5.4-32.0); CALCIUM 8.8 MG/DL (8.5-10.1); CHLORIDE 98 MMOL/L (99-107); CREATININE 1.92 MG/DL (0.60-1.10); GLUCOSE 445 MG/DL (70-104); LIPASE < 50 U/L (73-393); POTASSIUM 4.6 MMOL/L (3.5-5.1); SODIUM 135 MMOL/L (135-145); TOTAL PROTEIN 7.2 G/DL (6.4-8.2); eGFR 37 ML/MIN
[2021-10-01 13:16] LABS: TOTAL CARBON DIOXIDE 11.5 MMOL/L (24-32)
[2021-10-01] MEDS ORDERED: normal saline 1000ml 1,000 ML IV ONE ×2 (13:20)
[2021-10-01 14:31] LABS: CLARITY,URINE CLEAR (Clear); COLOR,URINE YELLOW (Yellow); GLUCOSE, URINE >=1000 mg/dl (Neg); KETONES,URINE 40 mg/dl (Neg); LEUKOCYTE ESTERASE ,URINE NEGATIVE (Neg); NITRITES, URINE NEGATIVE (Neg); OCCULT BLOOD,URINE SMALL (Neg); PH,URINE 5.5 (4.8-8.0); PROTEIN,URINE NEGATIVE (Neg); UROBILINOGEN,URINE 0.2 E.U/dL (0.2-1.0)
[2021-10-01 14:35] LABS: UA COLLECTION TYPE CLN CATCH MIDSTREAM
[2021-10-01 14:39] LABS: WBC,URINE 0-4 /HPF (0-4)
[2021-10-01 14:40] LABS: RBC,URINE 0-2 /HPF (0-2)
[2021-10-01 14:42] LABS: SQUAMOUS EPITHELIAL CELL,UR FEW /LPF (FEW)
[2021-10-01 14:43] LABS: SPERM FEW /HPF (NEGATIVE)
[2021-10-01 14:45] LABS: BACTERIA,URINE FEW /HPF (Neg)
[2021-10-01 14:46] LABS: ALANINE AMINOTRANSFERASE 47 U/L (12-78); ALBUMIN 3.2 G/DL (3.4-5.0); ALKALINE PHOSPHATASE 127 IU/L (46-116); ANION GAP 15 (8-16); ASPARTATE AMINO TRANSFERASE 25 U/L (10-37); BILIRUBIN,TOTAL 0.9 MG/DL (0.1-1.0); BLOOD UREA NITROGEN 35 MG/DL (7-18); BUN/CREATININE RATIO 22.3 (5.4-32.0); CALCIUM 7.8 MG/DL (8.5-10.1); CHLORIDE 104 MMOL/L (99-107); CREATININE 1.57 MG/DL (0.60-1.10); GLUCOSE 283 MG/DL (70-104); POTASSIUM 4.3 MMOL/L (3.5-5.1); SODIUM 137 MMOL/L (135-145); TOTAL CARBON DIOXIDE 18.4 MMOL/L (24-32); TOTAL PROTEIN 6.4 G/DL (6.4-8.2); eGFR 46 ML/MIN
[2021-10-01 14:59] VITALS: BP 141/81
== END 2021-10-01 15:20 | disposition home or self-care (01) ==
LOC: ER 12:25
DX: E11.22 Type 2 diabetes mellitus with diabetic chronic kidney disease (principal); I13.10 Hypertensive heart and chronic kidney disease without heart failure, with stage 1 through stage 4 chronic kidney disease, or unspecified chronic kidney disease; N18.9 Chronic kidney disease, unspecified; Z88.6 Allergy status to analgesic agent; Z79.899 Other long term (current) drug therapy
CPT/HCPCS: 36415; 80053; 81001; 82948; 83690; 85025; 99283; J7030

== ENCOUNTER 2022-07-12 16:00 | Inpatient (IN) | payer MEDICAID ==
[~2022-07-12] VITALS: Ht 190.5 cm; Wt 115.8 kg
[2022-07-12] MEDS ORDERED: potassium CL 20mEq in D5-1/2NS 1,000 ML IV PRN (16:10)
[2022-07-12] MEDS ORDERED: Neutra Phos packet PO PRN (16:10)
[2022-07-12] MEDS ORDERED: potassium Cl 20 mEq SR tablet PO PRN ×4 (16:10→18:40)
[2022-07-12] MEDS ORDERED: sodium bicarbonate (8.4%) inj. 100 MEQ in dextrose 5% water 500ml 500 ML IV PRN (16:10)
[2022-07-12] MEDS ORDERED: sodium bicarbonate (8.4%) inj. 50 MEQ in dextrose 5% water 500ml 250 ML IV PRN (16:10)
[2022-07-12] MEDS ORDERED: potassium Cl 40MEQ/1/2NS 520ml 520 ML IV PRN ×3 (16:10→18:40)
[2022-07-12] MEDS ORDERED: insulin regular, human U-100 3ml vial - multi-dose IV PRN (16:10)
[2022-07-12] MEDS ORDERED: sodium phosphate inj. 30 MMOL in dextrose 5%-water 250 ML IV PRN (16:10)
[2022-07-12] MEDS ORDERED: sodium phosphate inj. 15 MMOL in dextrose 5%-water 250 ML IV PRN (16:10)
[2022-07-12] MEDS ORDERED: ondansetron/PF 4mg/2ml inj IV ONE (16:20)
[2022-07-12 16:28] LABS: BASOPHILS # (AUTO) 0.2 X10'3 (0-0.2); BASOPHILS % (AUTO) 0.9 % (0-1); EOSINOPHILS % (AUTO) 0.2 % (0-6); HEMATOCRIT 41.8 % (42.0-52.0); HEMOGLOBIN 13.5 g/dl (14.0-17.9); LYMPHOCYTES # (AUTO) 0.8 X10'3 (1.1-4.8); LYMPHOCYTES % (AUTO) 4.2 % (21-51); MEAN CORPUSCULAR HEMOGLOBIN 31.3 PG (27.0-31.0); MEAN CORPUSCULAR HGB CONC 32.4 g/dL (33.0-36.5); MEAN CORPUSCULAR VOLUME 96.5 FL (78-98); MEAN PLATELET VOLUME 8.4 FL (7.4-10.4); MONOCYTES # (AUTO) 0.9 X10'3 (0-0.9); MONOCYTES % (AUTO) 4.7 % (2-12); NEUTROPHILS # (AUTO) 16.3 X10'3 (1.8-7.7); PLATELET COUNT 245 X10'3 (140-440); RED BLOOD COUNT 4.33 X10'6 (4.70-6.10); WHITE BLOOD COUNT 18.1 X10'3 (4.5-11.0)
[2022-07-12] MEDS: normal saline 1000ml 1,000 ML IV SCH ×5 (16:40→21:32)
[2022-07-12 16:54] LABS: ALANINE AMINOTRANSFERASE 70 U/L (12-78); ALBUMIN 3.7 G/DL (3.4-5.0); ALBUMIN/GLOBULIN RATIO 1.1 (1.1-1.5); ALKALINE PHOSPHATASE 134 IU/L (46-116); ANION GAP 28 (8-16); ASPARTATE AMINO TRANSFERASE 35 U/L (10-37); BILIRUBIN,DIRECT 0.2 MG/DL (0-0.3); BILIRUBIN,TOTAL 0.7 MG/DL (0.1-1.0); BLOOD UREA NITROGEN 50 MG/DL (7-18); BUN/CREATININE RATIO 23.6 (5.4-32.0); CALCIUM 8.3 MG/DL (8.5-10.1); CHLORIDE 96 MMOL/L (99-107); CREATININE 2.12 MG/DL (0.60-1.10); LIPASE < 50 U/L (73-393); PHOSPHORUS 8.5 MG/DL (2.3-4.5); POTASSIUM 5.2 MMOL/L (3.5-5.1); SODIUM 133 MMOL/L (135-145); TOTAL PROTEIN 7.1 G/DL (6.4-8.2); eGFR 33 ML/MIN
[2022-07-12 17:04] LABS: GLUCOSE 533 MG/DL (70-104)
--- NOTE | 2022-07-12 17:14 | NUR ---
BS @ 9418 is 522.
[2022-07-12] MEDS: Insulin Reg/NS 100units/100mL 100 ML IV SCH (17:55)
[2022-07-12] MEDS ORDERED: bisacodyl 10mg suppository rectal RC PRN (18:40)
[2022-07-12] MEDS ORDERED: acetaminophen 650mg rectal suppository RC PRN (18:40)
[2022-07-12] MEDS ORDERED: diphenhydrAMINE 50 mg/ml inj IV PRN (18:40)
[2022-07-12] MEDS ORDERED: HYDROcodone/acetaminophen 5mg/325mg tablet PO PRN (18:40)
[2022-07-12] MEDS ORDERED: magnesium 4gm in 100ml NS 100 ML IV PRN (18:40)
[2022-07-12] MEDS ORDERED: acetaminophen 325mg tablet PO PRN ×2 (18:40)
[2022-07-12] MEDS ORDERED: mag hydrox/Alum hydrox/simeth 30ml oral suspension PO PRN (18:40)
[2022-07-12] MEDS ORDERED: diphenhydrAMINE 25mg capsule PO PRN (18:40)
[2022-07-12] MEDS ORDERED: ondansetron 4mg rapidly disintigrating tab PO PRN (18:40)
[2022-07-12] MEDS ORDERED: magnesium Cl slow-release 64mg tablet PO PRN (18:40)
[2022-07-12] MEDS ORDERED: magnesium hydroxide 30ml (MOM) UD suspension PO PRN (18:40)
[2022-07-12] MEDS ORDERED: morphine 2 MG/ML inj. syringe IV PRN (18:40)
[2022-07-12] MEDS ORDERED: piperacillin/tazo 3.375gm/50ml 50 ML IV SCH (18:45)
[2022-07-12] MEDS ORDERED: morphine 2 MG/ML inj. syringe IV ONE (18:50)
[2022-07-12] MEDS: K and/or MAG REPLACEMENT MC SCH (20:00)
[2022-07-12] MEDS: docusate sod 100mg capsule PO SCH (20:00)
[2022-07-12] MEDS ORDERED: K and/or MAG REPLACEMENT MC SCH (20:00)
[2022-07-12 20:28] LABS: URINE AMPHETAMINE SCREEN NEGATIVE (Neg); URINE BARBITUATE SCREEN NEGATIVE (Neg); URINE BENZODIAZEPINES SCREEN NEGATIVE (Neg); URINE CANNABINOID SCREEN NEGATIVE (Neg); URINE COCAINE SCREEN NEGATIVE (Neg); URINE METHADONE SCREEN NEGATIVE (Neg); URINE OPIATE SCREEN NEGATIVE (Neg); URINE PHENCYCLIDINE SCREEN NEGATIVE (Neg)
[2022-07-12 20:31] LABS: ALBUMIN 3.3 G/DL (3.4-5.0); ANION GAP 26 (8-16); BLOOD UREA NITROGEN 53 MG/DL (7-18); CALCIUM 7.8 MG/DL (8.5-10.1); CHLORIDE 99 MMOL/L (99-107); CREATININE 1.96 MG/DL (0.60-1.10); GLUCOSE 403 MG/DL (70-104); PHOSPHORUS 6.1 MG/DL (2.3-4.5); POTASSIUM 5.1 MMOL/L (3.5-5.1); SODIUM 136 MMOL/L (135-145); eGFR 36 ML/MIN
[2022-07-12 20:35] LABS: TOTAL CARBON DIOXIDE 10.7 MMOL/L (24-32)
[2022-07-12 20:55] LABS: CLARITY,URINE CLEAR (Clear); COLOR,URINE YELLOW (Yellow); GLUCOSE, URINE >=1000 mg/dl (Neg); KETONES,URINE >=80 mg/dl (Neg); LEUKOCYTE ESTERASE ,URINE NEGATIVE (Neg); NITRITES, URINE NEGATIVE (Neg); OCCULT BLOOD,URINE SMALL (Neg); PROTEIN,URINE TRACE mg/dl (Neg); UROBILINOGEN,URINE 0.2 E.U/dL (0.2-1.0)
[2022-07-12 20:56] LABS: UA COLLECTION TYPE CLN CATCH MIDSTREAM
[2022-07-12] MEDS ORDERED: nicotine 14mg patch - 24hr TD ONE (21:05)
[2022-07-12] MEDS ORDERED: ipratropium/albuterol 3ml nebule NEB PRN (21:05)
[2022-07-12] MEDS: ondansetron/PF 4mg/2ml inj IV PRN (21:13)
[2022-07-12 21:15] LABS: HYALINE CASTS 0-3 /LPF (NEGATIVE); SQUAMOUS EPITHELIAL CELL,UR FEW /LPF (FEW)
[2022-07-12 21:16] LABS: BACTERIA,URINE FEW /HPF (Neg); RBC,URINE 0-2 /HPF (0-2); TRANSITIONAL EPI CELLS,URINE FEW /HPF; WBC,URINE 0-4 /HPF (0-4)
[2022-07-12] MEDS: heparin, porcine 5000 units/ml vial SQ SCH (22:01)
[2022-07-12] MEDS ORDERED: pantoprazole 40MG/NS 100ML BAG 100 ML IV SCH (22:45)
[2022-07-12 22:55] LABS: ALANINE AMINOTRANSFERASE 55 U/L (12-78); ALKALINE PHOSPHATASE 104 IU/L (46-116); ANION GAP 21 (8-16); ASPARTATE AMINO TRANSFERASE 23 U/L (10-37); BILIRUBIN,TOTAL 0.8 MG/DL (0.1-1.0); BLOOD UREA NITROGEN 52 MG/DL (7-18); BUN/CREATININE RATIO 28.3 (5.4-32.0); CALCIUM 7.6 MG/DL (8.5-10.1); CHLORIDE 103 MMOL/L (99-107); CREATININE 1.84 MG/DL (0.60-1.10); GLUCOSE 321 MG/DL (70-104); POTASSIUM 4.3 MMOL/L (3.5-5.1); SODIUM 138 MMOL/L (135-145); TOTAL PROTEIN 5.9 G/DL (6.4-8.2); eGFR 38 ML/MIN
[2022-07-12] MEDS: ipratropium/albuterol 3ml nebule NEB SCH (23:00)
[2022-07-12 23:05] LABS: TOTAL CARBON DIOXIDE 13.8 MMOL/L (24-32)
[2022-07-12] MEDS ORDERED: NITR0.4T48 SL (23:33)
[2022-07-12] MEDS ORDERED: ipratropium 0.5 MG/2.5ML nebule IH SCH (23:50)
[2022-07-13] VITALS (7 sets, daily range): BP systolic 102–126; BP diastolic 51–63
[2022-07-13] MEDS: potassium CL 20mEq in D5-1/2NS 1,000 ML IV PRN ×2 (01:41→08:23)
[2022-07-13] MEDS: ipratropium/albuterol 3ml nebule NEB SCH ×6 (03:11→22:45)
[2022-07-13] MEDS: morphine 2 MG/ML inj. syringe IV PRN ×2 (03:39→20:56)
[2022-07-13 03:54] LABS: BASOPHILS % (AUTO) 0.3 % (0-1); EOSINOPHILS # (AUTO) 0.1 X10'3 (0-0.9); HEMATOCRIT 34.6 % (42.0-52.0); HEMOGLOBIN 11.3 g/dl (14.0-17.9); LYMPHOCYTES # (AUTO) 2.6 X10'3 (1.1-4.8); LYMPHOCYTES % (AUTO) 18.4 % (21-51); MEAN CORPUSCULAR HEMOGLOBIN 30.5 PG (27.0-31.0); MEAN CORPUSCULAR HGB CONC 32.7 g/dL (33.0-36.5); MEAN CORPUSCULAR VOLUME 93.4 FL (78-98); MEAN PLATELET VOLUME 8.9 FL (7.4-10.4); MONOCYTES # (AUTO) 1.6 X10'3 (0-0.9); MONOCYTES % (AUTO) 11.6 % (2-12); NEUTROPHILS # (AUTO) 9.5 X10'3 (1.8-7.7); NEUTROPHILS % (AUTO) 68.7 % (42-75); PLATELET COUNT 202 X10'3 (140-440); RED CELL DISTRIBUTION WIDTH 13.2 % (11.5-14.5); WHITE BLOOD COUNT 13.8 X10'3 (4.5-11.0)
[2022-07-13 04:06] LABS: ALANINE AMINOTRANSFERASE 50 U/L (12-78); ALBUMIN 3.1 G/DL (3.4-5.0); ALBUMIN/GLOBULIN RATIO 1.1 (1.1-1.5); ALKALINE PHOSPHATASE 99 IU/L (46-116); ANION GAP 14 (8-16); ASPARTATE AMINO TRANSFERASE 23 U/L (10-37); BILIRUBIN,TOTAL 0.8 MG/DL (0.1-1.0); BLOOD UREA NITROGEN 48 MG/DL (7-18); BUN/CREATININE RATIO 27.4 (5.4-32.0); CALCIUM 7.8 MG/DL (8.5-10.1); CHLORIDE 105 MMOL/L (99-107); CREATININE 1.75 MG/DL (0.60-1.10); GLUCOSE 223 MG/DL (70-104); MAGNESIUM 2.1 MG/DL (1.5-2.4); PHOSPHORUS 3.2 MG/DL (2.3-4.5); SODIUM 138 MMOL/L (135-145); TOTAL CARBON DIOXIDE 18.6 MMOL/L (24-32); TOTAL PROTEIN 5.8 G/DL (6.4-8.2); eGFR 41 ML/MIN
[2022-07-13] MEDS: normal saline 1000ml 1,000 ML IV SCH ×4 (04:10→21:00)
[2022-07-13] MEDS: HYDROcodone/acetaminophen 10/325mg tab PO PRN ×3 (05:02→19:07)
--- NOTE | 2022-07-13 06:12 | NUR ---
Patient in room U 3016. I have received report from Ron BRUNSON and had the opportunity to ask questions and assume patient care. Patient is resting in bed in no acute distress.
--- NOTE | 2022-07-13 06:14 | NUR ---
Problems reprioritized. Patient report given, questions answered & plan of care reviewed with Carolina Hernandez RN.
[2022-07-13 07:03] LABS: BASOPHILS # (AUTO) 0.1 X10'3 (0-0.2); BASOPHILS % (AUTO) 0.6 % (0-1); EOSINOPHILS # (AUTO) 0.3 X10'3 (0-0.9); EOSINOPHILS % (AUTO) 2.2 % (0-6); HEMATOCRIT 33.9 % (42.0-52.0); HEMOGLOBIN 11.3 g/dl (14.0-17.9); LYMPHOCYTES % (AUTO) 22.3 % (21-51); MEAN CORPUSCULAR HGB CONC 33.3 g/dL (33.0-36.5); MEAN CORPUSCULAR VOLUME 93.1 FL (78-98); MEAN PLATELET VOLUME 8.8 FL (7.4-10.4); MONOCYTES # (AUTO) 1.3 X10'3 (0-0.9); MONOCYTES % (AUTO) 9.4 % (2-12); NEUTROPHILS # (AUTO) 8.7 X10'3 (1.8-7.7); NEUTROPHILS % (AUTO) 65.5 % (42-75); PLATELET COUNT 204 X10'3 (140-440); RED BLOOD COUNT 3.64 X10'6 (4.70-6.10); RED CELL DISTRIBUTION WIDTH 13.5 % (11.5-14.5); WHITE BLOOD COUNT 13.3 X10'3 (4.5-11.0)
[2022-07-13 07:08] LABS: ABG BASE EXCESS -19.8 mmol/L (-2.0-2.0); ABG HCO3 5.8 mmol/L (22.0-26.0); ABG OXYGEN SATURATION 97.4 % (94-97); ABG PCO2 (T) 15.1 mmHg (35.0-48.0); ABG PO2 (T) 118.4 mmHg (75.0-100.0); ALLEN'S TEST POSITIVE; FCOHb 0.6 % (0.0-3.9); FMetHb 0.3 % (0.0-1.5); FO2Hb 96.5 % (94-97); TOTAL HEMOGLOBIN 13.6 G/dl (14.0-17.9)
[2022-07-13 07:27] LABS: ALANINE AMINOTRANSFERASE 52 U/L (12-78); ALBUMIN 2.9 G/DL (3.4-5.0); ALKALINE PHOSPHATASE 93 IU/L (46-116); ANION GAP 12 (8-16); ASPARTATE AMINO TRANSFERASE 24 U/L (10-37); BILIRUBIN,TOTAL 0.6 MG/DL (0.1-1.0); BLOOD UREA NITROGEN 46 MG/DL (7-18); BUN/CREATININE RATIO 25.4 (5.4-32.0); CALCIUM 7.8 MG/DL (8.5-10.1); CHLORIDE 107 MMOL/L (99-107); CREATININE 1.81 MG/DL (0.60-1.10); GLUCOSE 233 MG/DL (70-104); MAGNESIUM 2.1 MG/DL (1.5-2.4); PHOSPHORUS 3.1 MG/DL (2.3-4.5); POTASSIUM 3.9 MMOL/L (3.5-5.1); SODIUM 139 MMOL/L (135-145); TOTAL CARBON DIOXIDE 19.6 MMOL/L (24-32); TOTAL PROTEIN 5.7 G/DL (6.4-8.2); eGFR 39 ML/MIN
[2022-07-13] MEDS: K and/or MAG REPLACEMENT MC SCH ×2 (08:00→19:10)
[2022-07-13] MEDS: docusate sod 100mg capsule PO SCH ×2 (08:00→19:09)
[2022-07-13] MEDS: piperacillin/tazo 3.375gm/50ml 50 ML IV SCH ×3 (08:23→22:48)
[2022-07-13] MEDS: carVEDilol 12.5mg tablet PO SCH ×2 (08:25→19:09)
[2022-07-13] MEDS: amLODIPine 5mg tablet PO SCH (08:25)
[2022-07-13] MEDS: losartan 50mg tablet PO SCH (08:25)
[2022-07-13] MEDS: aspirin 81mg, enteric-coated 1 TAB TABLET.DR PO SCH (08:25)
[2022-07-13] MEDS: nicotine 14mg patch - 24hr TD SCH (08:26)
[2022-07-13] MEDS: atorvastatin 20mg tablet PO SCH (08:26)
[2022-07-13] MEDS: heparin, porcine 5000 units/ml vial SQ SCH ×2 (08:26→19:11)
[2022-07-13] MEDS: pantoprazole 40mg Tablet.DR PO SCH (09:59)
[2022-07-13 10:03] LABS: ALBUMIN 3.1 G/DL (3.4-5.0); ANION GAP 7 (8-16); BLOOD UREA NITROGEN 42 MG/DL (7-18); BUN/CREATININE RATIO 26.4 (5.4-32.0); CALCIUM 7.9 MG/DL (8.5-10.1); CHLORIDE 108 MMOL/L (99-107); CREATININE 1.59 MG/DL (0.60-1.10); GLUCOSE 189 MG/DL (70-104); PHOSPHORUS 2.6 MG/DL (2.3-4.5); POTASSIUM 3.6 MMOL/L (3.5-5.1); SODIUM 138 MMOL/L (135-145); TOTAL CARBON DIOXIDE 23.2 MMOL/L (24-32); eGFR 45 ML/MIN
[2022-07-13] MEDS: Insulin Reg/NS 100units/100mL 100 ML IV SCH (10:03)
[2022-07-13] MEDS ORDERED: MESSAGE TO PHARMACY PO ONE ×2 (11:10)
[2022-07-13] MEDS ORDERED: dextrose 50%-water 50ml dispensing syringe IV PRN ×4 (11:10)
[2022-07-13] MEDS ORDERED: insulin Lispro (HumaLOG) vial - multi-dose SQ SCH (11:10)
[2022-07-13] MEDS ORDERED: DEXTROSE 15 GM of carb/4 tabs (each vial/BOTTLE has 4 tablets) PO PRN ×4 (11:10)
[2022-07-13] MEDS ORDERED: glucagon, human recombinant 1mg kit SUBCUT PRN ×2 (11:10)
--- NOTE | 2022-07-13 11:11 | NUR ---
Page Accepted promotional table spacer Message: [id number] Jak. Patient CO2 is 23.2 anion gap is 7. I am going to feed the patient lunch and turn off the insulin gtt after i give subQ humalog. Do you want me to give a one time dose of lantus at that time ? Carolina @[id number] Custom Responses: promotional table spacer Transaction number: [id number]
[2022-07-13] MEDS: insulin Lispro (HumaLOG) vial - multi-dose SQ SCH ×3 (12:46→18:57)
--- NOTE | 2022-07-13 15:02 | NUR ---
DM consult: Pt admit DX DKA hx T1DM A1C 8.0% initially NPO now advanced to carb controlled diet per EMR. Pt seen by RD at bedside; reports hx T1DM w/ insulin pump though pump sensor not working appropriately LADLER and "tube" that delivers insulin had kink in it so it was not delivering insulin LADLER. Pt reports last prior A1C 8.0% follows PCP and magento web developer routinely for DM management. Pt declines verbal DM diet ed though agreeable to written DM diet ed w/ RD contact information provided. RD encouraged pt to contact dietitian's office if further nutrition questions/concerns. Initial PO carb controlled meals pending. LBM 3/5 receiving routine colace per EMR. Will continue to monitor. Rec: 1. continue carb controlled diet 2. monitor PO trends for ONS needs 3. routine bowel care 4. weekly wts Addendum: 07/13/22 at [address] Amended: Links added.
[2022-07-13 15:29] LABS: CHOLESTEROL 95 MG/DL (0-200); HDL CHOLESTEROL 47 MG/DL (35-60); LDL CHOLESTEROL 39 MG/DL (50-100); TRIGLYCERIDES 71 MG/DL (20-135)
[2022-07-13 17:59] LABS: ALBUMIN 3.1 G/DL (3.4-5.0); ANION GAP 13 (8-16); BLOOD UREA NITROGEN 42 MG/DL (7-18); BUN/CREATININE RATIO 20.9 (5.4-32.0); CHLORIDE 104 MMOL/L (99-107); CREATININE 2.01 MG/DL (0.60-1.10); GLUCOSE 430 MG/DL (70-104); MAGNESIUM 2.1 MG/DL (1.5-2.4); PHOSPHORUS 3.8 MG/DL (2.3-4.5); POTASSIUM 4.6 MMOL/L (3.5-5.1); SODIUM 134 MMOL/L (135-145); TOTAL CARBON DIOXIDE 16.8 MMOL/L (24-32); eGFR 35 ML/MIN
--- NOTE | 2022-07-13 18:13 | NUR ---
Problems reprioritized. Patient report given, questions answered & plan of care reviewed with Ron BRUNSON. Patient resting in bed in no acute distress.
[2022-07-13] MEDS: insulin glargine (Lantus) pen - multi-dose SQ SCH (20:51)
[2022-07-13] MEDS ORDERED: insulin glargine (Lantus) pen - multi-dose SQ SCH (21:00)
[2022-07-14] MEDS: ipratropium/albuterol 3ml nebule NEB SCH ×6 (02:47→23:00)
[2022-07-14 02:56] VITALS: BP 122/66
[2022-07-14] MEDS: normal saline 1000ml 1,000 ML IV SCH ×2 (05:05→13:03)
[2022-07-14] MEDS: piperacillin/tazo 3.375gm/50ml 50 ML IV SCH ×3 (05:59→22:35)
--- NOTE | 2022-07-14 06:30 | NUR ---
Problems reprioritized. Patient report given, questions answered & plan of care reviewed with Carolina BRUNSON.
[2022-07-14 06:52] LABS: BASOPHILS # (AUTO) 0.1 X10'3 (0-0.2); BASOPHILS % (AUTO) 0.8 % (0-1); EOSINOPHILS # (AUTO) 0.6 X10'3 (0-0.9); EOSINOPHILS % (AUTO) 6.1 % (0-6); HEMATOCRIT 34.3 % (42.0-52.0); HEMOGLOBIN 11.5 g/dl (14.0-17.9); LYMPHOCYTES # (AUTO) 2.1 X10'3 (1.1-4.8); LYMPHOCYTES % (AUTO) 23.1 % (21-51); MEAN CORPUSCULAR HEMOGLOBIN 31.6 PG (27.0-31.0); MEAN CORPUSCULAR HGB CONC 33.6 g/dL (33.0-36.5); MEAN PLATELET VOLUME 9.1 FL (7.4-10.4); MONOCYTES # (AUTO) 0.6 X10'3 (0-0.9); MONOCYTES % (AUTO) 6.6 % (2-12); NEUTROPHILS # (AUTO) 5.8 X10'3 (1.8-7.7); NEUTROPHILS % (AUTO) 63.4 % (42-75); PLATELET COUNT 168 X10'3 (140-440); RED BLOOD COUNT 3.65 X10'6 (4.70-6.10); RED CELL DISTRIBUTION WIDTH 13.9 % (11.5-14.5); WHITE BLOOD COUNT 9.2 X10'3 (4.5-11.0)
[2022-07-14 07:00] VITALS: BP 131/66
[2022-07-14 07:09] LABS: ALANINE AMINOTRANSFERASE 71 U/L (12-78); ALBUMIN 2.9 G/DL (3.4-5.0); ALBUMIN/GLOBULIN RATIO 1.1 (1.1-1.5); ALKALINE PHOSPHATASE 90 IU/L (46-116); ANION GAP 13 (8-16); ASPARTATE AMINO TRANSFERASE 46 U/L (10-37); BILIRUBIN,TOTAL 0.6 MG/DL (0.1-1.0); BLOOD UREA NITROGEN 29 MG/DL (7-18); BUN/CREATININE RATIO 18.8 (5.4-32.0); CALCIUM 8.1 MG/DL (8.5-10.1); CHLORIDE 105 MMOL/L (99-107); CREATININE 1.54 MG/DL (0.60-1.10); GLUCOSE 366 MG/DL (70-104); POTASSIUM 4.7 MMOL/L (3.5-5.1); SODIUM 136 MMOL/L (135-145); TOTAL CARBON DIOXIDE 17.9 MMOL/L (24-32); TOTAL PROTEIN 5.6 G/DL (6.4-8.2); eGFR 47 ML/MIN
[2022-07-14] MEDS: K and/or MAG REPLACEMENT MC SCH ×2 (08:00→20:00)
[2022-07-14] MEDS: docusate sod 100mg capsule PO SCH ×2 (08:00→20:00)
[2022-07-14] MEDS: carVEDilol 12.5mg tablet PO SCH ×2 (08:28→19:43)
[2022-07-14] MEDS: losartan 50mg tablet PO SCH (08:29)
[2022-07-14] MEDS: aspirin 81mg, enteric-coated 1 TAB TABLET.DR PO SCH (08:29)
[2022-07-14] MEDS: atorvastatin 20mg tablet PO SCH (08:29)
[2022-07-14] MEDS: amLODIPine 5mg tablet PO SCH (08:29)
[2022-07-14] MEDS: pantoprazole 40mg Tablet.DR PO SCH (08:29)
[2022-07-14] MEDS: heparin, porcine 5000 units/ml vial SQ SCH ×2 (08:30→19:44)
[2022-07-14] MEDS: nicotine 14mg patch - 24hr TD SCH (08:30)
[2022-07-14] MEDS: insulin Lispro (HumaLOG) vial - multi-dose SQ SCH ×3 (08:34→18:59)
[2022-07-14] MEDS: ondansetron/PF 4mg/2ml inj IV PRN (08:39)
--- NOTE | 2022-07-14 08:39 | NUR ---
I spoke to Dr Price over the phone about putting patient back on insulin gtt due to decreased Co2 , persistent high BG, and patient being nauseous but Dr Price said to stay on hypo/hyperglycemic protocol.
[2022-07-14] MEDS ORDERED: normal saline 1000ml 1,000 ML IV ONE (08:55)
[2022-07-14 11:00] VITALS: BP 142/65
--- NOTE | 2022-07-14 13:29 | NUR ---
Received order for consult. Met with patient in regards to alcohol use and to see if patient was interested in resources for treatment options. Patient declined resources.
[2022-07-14 15:00] VITALS: BP 120/97
[2022-07-14] MEDS ORDERED: sodium bicarbonate (8.4%) inj. 100 MEQ in sodium chloride 0.45% 900 ML IV SCH (15:00)
[2022-07-14] MEDS ORDERED: sodium bicarbonate (8.4%) inj. 100 MEQ in sodium chloride 0.45% 1,000 ML IV SCH ×2 (15:11→16:15)
--- NOTE | 2022-07-14 15:44 | NUR ---
Dr Price gave me a telephone order earlier for an ABG.
[2022-07-14 16:01] LABS: ABG BASE EXCESS -3.8 mmol/L (-2.0-2.0); ABG HCO3 19.4 mmol/L (22.0-26.0); ABG OXYGEN SATURATION 90.5 % (94-97); ABG PCO2 (T) 29.6 mmHg (35.0-48.0); ABG PO2 (T) 54.8 mmHg (75.0-100.0); ALLEN'S TEST POSITIVE; FCOHb 0.3 % (0.0-3.9); FO2Hb 90.2 % (94-97)
--- NOTE | 2022-07-14 16:08 | NUR ---
Critical abg results reported to , no new RT orders, orders given to NANNETTE Dash. Pt placed on 2lpm NC. Addendum: 07/14/22 at 1609 [address] Let[address]ham RT Amended: Links added.
--- NOTE | 2022-07-14 16:13 | NUR ---
Per Dr. Price, run bicarb gtt for 12 hours, then switch to NS @ 125 mL/hr. Orders read back to and confirmed with provider. Orders entered.
[2022-07-14] MEDS: HYDROcodone/acetaminophen 10/325mg tab PO PRN (16:25)
[2022-07-14 18:00] VITALS: BP 139/74
--- NOTE | 2022-07-14 18:08 | NUR ---
Problems reprioritized. Patient report given, questions answered & plan of care reviewed with Ron BRUNSON .
[2022-07-14] MEDS: insulin glargine (Lantus) pen - multi-dose SQ SCH (21:33)
[2022-07-14 22:00] VITALS: BP 137/74
[2022-07-15 02:00] VITALS: BP 149/68
[2022-07-15] MEDS: ipratropium/albuterol 3ml nebule NEB SCH ×3 (02:33→11:00)
[2022-07-15] MEDS ORDERED: normal saline 1000ml 1,000 ML IV SCH (04:15)
[2022-07-15 06:20] VITALS: BP 146/73
--- NOTE | 2022-07-15 06:20 | NUR ---
Patient in room PCU 3016. I have received report from Ron BRUNSON and had the opportunity to ask questions and assume patient care. Bedside report completed. Pt awake and denies needs, Call light in reach. Addendum: 07/15/22 at 0648 by Perlita Norwood RN Amended: Links added.
--- NOTE | 2022-07-15 06:40 | NUR ---
Problems reprioritized. Patient report given, questions answered & plan of care reviewed with Perlita BRUNSON.
[2022-07-15 06:45] LABS: BASOPHILS # (AUTO) 0.1 X10'3 (0-0.2); BASOPHILS % (AUTO) 0.8 % (0-1); EOSINOPHILS # (AUTO) 0.6 X10'3 (0-0.9); EOSINOPHILS % (AUTO) 7.6 % (0-6); HEMATOCRIT 34.4 % (42.0-52.0); HEMOGLOBIN 11.5 g/dl (14.0-17.9); LYMPHOCYTES # (AUTO) 1.4 X10'3 (1.1-4.8); LYMPHOCYTES % (AUTO) 19.1 % (21-51); MEAN CORPUSCULAR HEMOGLOBIN 31.2 PG (27.0-31.0); MEAN CORPUSCULAR HGB CONC 33.4 g/dL (33.0-36.5); MEAN CORPUSCULAR VOLUME 93.4 FL (78-98); MONOCYTES # (AUTO) 0.6 X10'3 (0-0.9); MONOCYTES % (AUTO) 8.2 % (2-12); NEUTROPHILS # (AUTO) 4.8 X10'3 (1.8-7.7); NEUTROPHILS % (AUTO) 64.3 % (42-75); PLATELET COUNT 155 X10'3 (140-440); RED BLOOD COUNT 3.68 X10'6 (4.70-6.10); RED CELL DISTRIBUTION WIDTH 13.4 % (11.5-14.5); WHITE BLOOD COUNT 7.4 X10'3 (4.5-11.0)
[2022-07-15 06:58] LABS: ALANINE AMINOTRANSFERASE 63 U/L (12-78); ALBUMIN 2.9 G/DL (3.4-5.0); ALKALINE PHOSPHATASE 95 IU/L (46-116); ANION GAP 8 (8-16); ASPARTATE AMINO TRANSFERASE 39 U/L (10-37); BILIRUBIN,TOTAL 0.7 MG/DL (0.1-1.0); BLOOD UREA NITROGEN 17 MG/DL (7-18); BUN/CREATININE RATIO 15.9 (5.4-32.0); CALCIUM 8.4 MG/DL (8.5-10.1); CHLORIDE 106 MMOL/L (99-107); CREATININE 1.07 MG/DL (0.60-1.10); GLUCOSE 298 MG/DL (70-104); MAGNESIUM 1.8 MG/DL (1.5-2.4); POTASSIUM 4.3 MMOL/L (3.5-5.1); SODIUM 139 MMOL/L (135-145); TOTAL CARBON DIOXIDE 25.5 MMOL/L (24-32); TOTAL PROTEIN 5.9 G/DL (6.4-8.2); eGFR 72 ML/MIN
[2022-07-15] MEDS: docusate sod 100mg capsule PO SCH (08:00)
[2022-07-15] MEDS: K and/or MAG REPLACEMENT MC SCH (08:00)
[2022-07-15] MEDS: aspirin 81mg, enteric-coated 1 TAB TABLET.DR PO SCH (08:12)
[2022-07-15] MEDS: pantoprazole 40mg Tablet.DR PO SCH (08:12)
[2022-07-15] MEDS: nicotine 14mg patch - 24hr TD SCH (08:13)
[2022-07-15] MEDS: amLODIPine 5mg tablet PO SCH (08:14)
[2022-07-15] MEDS: carVEDilol 12.5mg tablet PO SCH (08:15)
[2022-07-15] MEDS: losartan 50mg tablet PO SCH (08:15)
[2022-07-15] MEDS: piperacillin/tazo 3.375gm/50ml 50 ML IV SCH ×2 (08:16→14:00)
[2022-07-15] MEDS: atorvastatin 20mg tablet PO SCH (08:16)
[2022-07-15] MEDS: heparin, porcine 5000 units/ml vial SQ SCH (08:16)
[2022-07-15] MEDS: insulin Lispro (HumaLOG) vial - multi-dose SQ SCH ×2 (08:23→12:47)
[2022-07-15 11:26] VITALS: BP 156/73
[2022-07-15] MEDS ORDERED: ALBU6.7H14 INH (12:49)
[2022-07-15] MEDS ORDERED: BUDE10.22 INH (12:49)
[2022-07-15] MEDS ORDERED: AMOX-419 PO (12:49)
[2022-07-15] MEDS ORDERED: NICO-631 TD (12:49)
[2022-07-15] MEDS ORDERED: PANT40TA54 PO (12:49)
[2022-07-15] MEDS ORDERED: LACT1CAP26 PO (12:49)
[2022-07-15] MEDS ORDERED: MULT-1074 PO (12:51)
[2022-07-15] MEDS ORDERED: FOLI1TAB27 PO (12:51)
[2022-07-15] MEDS ORDERED: THIA50TA10 PO (12:51)
--- NOTE | 2022-07-15 12:54 | NUR ---
Message: [id number] brian [facility] lost all his home meds. All home meds will need to be re prescribed. Perlita BROWN
--- NOTE | 2022-07-15 15:05 | NUR ---
All written and verbal orders for D/C given, all questions answered. Home meds found in Pharmacy and returned to pt on D/C. pt left hospital via power chair. Addendum: 07/15/22 at 1523 by Perlita Norwood RN Amended: Links added.
== END 2022-07-15 15:05 | disposition home or self-care (01) | DRG 420 ==
LOC: ER 16:02 → ED HOLD 18:43 → EDBEDREQ 23:08 → PCU 3S 07-13 00:05
PROVIDERS: ADMIT Family Medicine; ATTEND Family Medicine
DX: E10.10 Type 1 diabetes mellitus with ketoacidosis without coma (principal); N17.0 Acute kidney failure with tubular necrosis; I50.9 Heart failure, unspecified; I13.0 Hypertensive heart and chronic kidney disease with heart failure and stage 1 through stage 4 chronic kidney disease, or unspecified chronic kidney disease; E10.42 Type 1 diabetes mellitus with diabetic polyneuropathy; E10.22 Type 1 diabetes mellitus with diabetic chronic kidney disease; D72.829 Elevated white blood cell count, unspecified; J44.1 Chronic obstructive pulmonary disease with (acute) exacerbation; Z20.822 Contact with and (suspected) exposure to COVID-19; E86.0 Dehydration; B19.20 Unspecified viral hepatitis C without hepatic coma; R19.7 Diarrhea, unspecified; F10.10 Alcohol abuse, uncomplicated; N50.811 Right testicular pain; F17.210 Nicotine dependence, cigarettes, uncomplicated; I25.10 Atherosclerotic heart disease of native coronary artery without angina pectoris; N18.9 Chronic kidney disease, unspecified; Z79.82 Long term (current) use of aspirin; Z82.3 Family history of stroke; I25.2 Old myocardial infarction; Z82.49 Family history of ischemic heart disease and other diseases of the circulatory system; Z82.5 Family history of asthma and other chronic lower respiratory diseases; Z85.47 Personal history of malignant neoplasm of testis; Z87.11 Personal history of peptic ulcer disease; Z95.5 Presence of coronary angioplasty implant and graft; Z99.3 Dependence on wheelchair; Z88.8 Allergy status to other drugs, medicaments and biological substances; Z56.0 Unemployment, unspecified; Z79.899 Other long term (current) drug therapy; Z79.4 Long term (current) use of insulin; Z71.6 Tobacco abuse counseling
CPT/HCPCS: 36415; 36600; 71045; 76870; 80048; 80053; 80061; 80076; 80305; 81001; 82803; 82948; 83036; 83605; 83690; 83735; 84100; 84145; 84443; 85018; 85025; 87040; 87081; 87502; 87503; 87635; 93005; 93976; 94640; 94760; 97116; 97161; 97530; 99285; A4615; A6258; C9113; G0378; J1644; J1815; J2270; J2405; J2543; J3480; J3490; J7030; J7040

== ENCOUNTER 2022-10-18 02:28 | Emergency (ER) | payer MEDICAID ==
[~2022-10-18] VITALS: Ht 190.5 cm; Wt 122.7 kg
[~2022-10-18 02:28] MED LIST changes: +ALBU6.7H14 INH; -AMLO-708 PO; +BUDE10.22 INH; -CARV-50 PO; -CLOB15OI3 TOP; -CLOP75TA34 PO; +FOLI1TAB27 PO; -GLUC1KIT; +LACT1CAP26 PO; -LORA10TA7 PO; -METO-395 PO; +MULT-1074 PO; +NICO-631 TD; +NITR0.4T48 SL; +PANT40TA54 PO; +THIA50TA10 PO
[2022-10-18 03:59] LABS: BASOPHILS # (AUTO) 0.1 X10'3 (0-0.2); BASOPHILS % (AUTO) 0.8 % (0-1); EOSINOPHILS # (AUTO) 1.2 X10'3 (0-0.9); EOSINOPHILS % (AUTO) 9.5 % (0-6); HEMATOCRIT 42.2 % (42.0-52.0); HEMOGLOBIN 14.1 g/dl (14.0-17.9); LYMPHOCYTES # (AUTO) 2.2 X10'3 (1.1-4.8); LYMPHOCYTES % (AUTO) 17.6 % (21-51); MEAN CORPUSCULAR HEMOGLOBIN 30.8 PG (27.0-31.0); MEAN CORPUSCULAR HGB CONC 33.4 g/dL (33.0-36.5); MEAN CORPUSCULAR VOLUME 92.2 FL (78-98); MEAN PLATELET VOLUME 9.3 FL (7.4-10.4); NEUTROPHILS # (AUTO) 8.1 X10'3 (1.8-7.7); NEUTROPHILS % (AUTO) 64.1 % (42-75); PLATELET COUNT 219 X10'3 (140-440); RED BLOOD COUNT 4.58 X10'6 (4.70-6.10); RED CELL DISTRIBUTION WIDTH 13.1 % (11.5-14.5); WHITE BLOOD COUNT 12.6 X10'3 (4.5-11.0)
[2022-10-18 04:12] LABS: ALANINE AMINOTRANSFERASE 38 U/L (12-78); ALBUMIN 3.2 G/DL (3.4-5.0); ALKALINE PHOSPHATASE 124 IU/L (46-116); ANION GAP 11 (8-16); ASPARTATE AMINO TRANSFERASE 18 U/L (10-37); BILIRUBIN,TOTAL 0.2 MG/DL (0.1-1.0); BLOOD UREA NITROGEN 20 MG/DL (7-18); BUN/CREATININE RATIO 16.7 (10.0-20.0); CALCIUM 8.8 MG/DL (8.5-10.1); CHLORIDE 104 MMOL/L (99-107); GLUCOSE 321 MG/DL (70-104); POTASSIUM 3.8 MMOL/L (3.5-5.1); SODIUM 136 MMOL/L (135-145); TOTAL CARBON DIOXIDE 21.2 MMOL/L (24-32); TOTAL PROTEIN 6.4 G/DL (6.4-8.2); eGFR 63 ML/MIN
[2022-10-18] MEDS ORDERED: insulin regular, human 10 units/0.1 ml syringe IV ONE (04:50)
[2022-10-18] MEDS ORDERED: SYRI-641 SUBCUT (04:52)
[2022-10-18] MEDS ORDERED: LANTUS SQ (04:52)
[2022-10-18] MEDS ORDERED: INSU100V30 SQ (04:52)
[2022-10-18 05:00] VITALS: BP 121/69
== END 2022-10-18 05:01 | disposition home or self-care (01) ==
LOC: ER 02:29
DX: E10.65 Type 1 diabetes mellitus with hyperglycemia (principal); I12.0 Hypertensive chronic kidney disease with stage 5 chronic kidney disease or end stage renal disease; E10.22 Type 1 diabetes mellitus with diabetic chronic kidney disease; N18.9 Chronic kidney disease, unspecified; Z88.5 Allergy status to narcotic agent
CPT/HCPCS: 36415; 80053; 82948; 85025; 96374; 99283; J1815

== ENCOUNTER 2023-07-25 09:24 | Emergency (ER) | payer MEDICAID ==
[~2023-07-25] VITALS: Ht 190.5 cm; Wt 113.6 kg
[~2023-07-25 09:24] MED LIST changes: -INSU100V30 SQ; +INSU100V64 SQ; -IRBE300T18 PO; +IRBE300T26 PO; +SYRI-641 SUBCUT
[2023-07-25 11:56] LABS: BASOPHILS # (AUTO) 0.1 X10'3 (0-0.2); BASOPHILS % (AUTO) 1.4 % (0-1); EOSINOPHILS # (AUTO) 0.6 X10'3 (0-0.9); EOSINOPHILS % (AUTO) 5.9 % (0-6); HEMATOCRIT 43.1 % (42.0-52.0); HEMOGLOBIN 14.6 g/dl (14.0-17.9); LYMPHOCYTES # (AUTO) 2.1 X10'3 (1.1-4.8); LYMPHOCYTES % (AUTO) 21.1 % (21-51); MEAN CORPUSCULAR HEMOGLOBIN 31.2 PG (27.0-31.0); MEAN CORPUSCULAR HGB CONC 33.8 g/dL (33.0-36.5); MEAN CORPUSCULAR VOLUME 92.3 FL (78-98); MEAN PLATELET VOLUME 9.6 FL (7.4-10.4); MONOCYTES # (AUTO) 0.8 X10'3 (0-0.9); MONOCYTES % (AUTO) 7.5 % (2-12); NEUTROPHILS # (AUTO) 6.4 X10'3 (1.8-7.7); NEUTROPHILS % (AUTO) 64.1 % (42-75); PLATELET COUNT 200 X10'3 (140-440); RED BLOOD COUNT 4.67 X10'6 (4.70-6.10); RED CELL DISTRIBUTION WIDTH 13.6 % (11.5-14.5)
[2023-07-25] MEDS ORDERED: SULF1TAB49 PO (12:00)
[2023-07-25 12:01] LABS: ALANINE AMINOTRANSFERASE 22 U/L (12-78); ALBUMIN 2.7 G/DL (3.4-5.0); ALBUMIN/GLOBULIN RATIO 0.7 (1.1-1.5); ALKALINE PHOSPHATASE 97 IU/L (46-116); ANION GAP 10 (8-16); ASPARTATE AMINO TRANSFERASE 15 U/L (10-37); BILIRUBIN,TOTAL 0.6 MG/DL (0.1-1.0); BLOOD UREA NITROGEN 20 MG/DL (7-18); BUN/CREATININE RATIO 19.4 (10.0-20.0); CALCIUM 8.6 MG/DL (8.5-10.1); CHLORIDE 105 MMOL/L (99-107); CREATININE 1.03 MG/DL (0.60-1.10); GLUCOSE 170 MG/DL (70-104); POTASSIUM 4.1 MMOL/L (3.5-5.1); SODIUM 138 MMOL/L (135-145); TOTAL CARBON DIOXIDE 23.2 MMOL/L (24-32); TOTAL PROTEIN 6.8 G/DL (6.4-8.2); eCRCL 96 ML/MIN; eGFR 75 ML/MIN
[2023-07-25 12:14] VITALS: BP 147/75; PULSE 80; RESP 16; TEMP 98.1; O2SAT 98
== END 2023-07-25 12:16 | disposition home or self-care (01) ==
LOC: ER 09:24
DX: L03.115 Cellulitis of right lower limb (principal); I12.9 Hypertensive chronic kidney disease with stage 1 through stage 4 chronic kidney disease, or unspecified chronic kidney disease; N18.9 Chronic kidney disease, unspecified; E11.22 Type 2 diabetes mellitus with diabetic chronic kidney disease; Z88.5 Allergy status to narcotic agent; Z79.899 Other long term (current) drug therapy; Z79.82 Long term (current) use of aspirin; Z79.84 Long term (current) use of oral hypoglycemic drugs
CPT/HCPCS: 36415; 73590; 80053; 85025; 99284

== ENCOUNTER → 2023-08-13 | Outpatient (CLI) | payer MEDICAID ==
[~2023-08-13] MED LIST changes: +AMLO-888 PO; -AMLO10TA48 PO
== END | disposition home or self-care (01) ==
LOC: 64 CT 13:23
PROVIDERS: ATTEND Family Medicine
DX: Z12.2 Encounter for screening for malignant neoplasm of respiratory organs (principal); R91.8 Other nonspecific abnormal finding of lung field; J98.4 Other disorders of lung; I25.10 Atherosclerotic heart disease of native coronary artery without angina pectoris; F17.210 Nicotine dependence, cigarettes, uncomplicated
CPT/HCPCS: 71271

== ENCOUNTER 2023-12-14 19:30 | Emergency (ER) | payer MEDICAID ==
[~2023-12-14] VITALS: Ht 190.5 cm; Wt 113.6 kg
[2023-12-14 19:59] LABS: BASOPHILS # (AUTO) 0.1 X10'3 (0-0.2); BASOPHILS % (AUTO) 1.2 % (0-1); EOSINOPHILS % (AUTO) 8.6 % (0-6); HEMATOCRIT 42.6 % (42.0-52.0); HEMOGLOBIN 14.2 g/dl (14.0-17.9); LYMPHOCYTES # (AUTO) 3.3 X10'3 (1.1-4.8); LYMPHOCYTES % (AUTO) 28.9 % (21-51); MEAN CORPUSCULAR HGB CONC 33.5 g/dL (33.0-36.5); MEAN CORPUSCULAR VOLUME 92.7 FL (78-98); MEAN PLATELET VOLUME 9.1 FL (7.4-10.4); MONOCYTES # (AUTO) 0.9 X10'3 (0-0.9); MONOCYTES % (AUTO) 7.8 % (2-12); NEUTROPHILS # (AUTO) 6.1 X10'3 (1.8-7.7); NEUTROPHILS % (AUTO) 53.5 % (42-75); PLATELET COUNT 216 X10'3 (140-440); RED BLOOD COUNT 4.59 X10'6 (4.70-6.10); RED CELL DISTRIBUTION WIDTH 13.6 % (11.5-14.5); WHITE BLOOD COUNT 11.4 X10'3 (4.5-11.0)
[2023-12-14 20:13] LABS: ALANINE AMINOTRANSFERASE 31 U/L (12-78); ALBUMIN 3.3 G/DL (3.4-5.0); ALBUMIN/GLOBULIN RATIO 0.8 (1.1-1.5); ALKALINE PHOSPHATASE 141 IU/L (46-116); ANION GAP 5 (8-16); ASPARTATE AMINO TRANSFERASE 15 U/L (10-37); BILIRUBIN,TOTAL 0.3 MG/DL (0.1-1.0); BLOOD UREA NITROGEN 16 MG/DL (7-18); BUN/CREATININE RATIO 13.9 (10.0-20.0); CALCIUM 9.1 MG/DL (8.5-10.1); CHLORIDE 106 MMOL/L (99-107); CREATININE 1.15 MG/DL (0.60-1.10); GLUCOSE 170 MG/DL (70-104); POTASSIUM 4.1 MMOL/L (3.5-5.1); SODIUM 137 MMOL/L (135-145); TOTAL CARBON DIOXIDE 25.7 MMOL/L (24-32); TOTAL PROTEIN 7.3 G/DL (6.4-8.2); eCRCL 85 ML/MIN; eGFR 66 ML/MIN
[2023-12-14 20:21] LABS: PRO BRAIN NATRIURETIC PEPTIDE 83 PG/ML (0-125)
[2023-12-14 20:54] VITALS: BP 118/65; PULSE 85; RESP 18; TEMP 98.1; O2SAT 98
== END 2023-12-14 20:56 | disposition home or self-care (01) ==
LOC: ER 19:31
DX: R07.89 Other chest pain (principal); E11.42 Type 2 diabetes mellitus with diabetic polyneuropathy; I12.9 Hypertensive chronic kidney disease with stage 1 through stage 4 chronic kidney disease, or unspecified chronic kidney disease; N18.9 Chronic kidney disease, unspecified; E11.22 Type 2 diabetes mellitus with diabetic chronic kidney disease; J44.9 Chronic obstructive pulmonary disease, unspecified; Z88.5 Allergy status to narcotic agent; Z79.899 Other long term (current) drug therapy; Z79.82 Long term (current) use of aspirin; Z79.4 Long term (current) use of insulin
CPT/HCPCS: 36415; 71045; 80053; 83880; 84484; 85025; 93005; 99285

== ENCOUNTER 2025-03-10 11:21 | Emergency (ER) | payer MEDICAID ==
[~2025-03-10] VITALS: Ht 190.5 cm; Wt 118.6 kg
[2025-03-10 11:24] VITALS: BP 130/88; PULSE 97; RESP 18; O2SAT 100
[2025-03-10] MEDS ORDERED: CIPR10DR RIGHT EAR (11:29)
--- NOTE | 2025-03-10 11:30 | Physician Documentation ---
History of Present Illness ~ Stated Complaint: EAR PAIN Time Seen by MD: 11:28 Primary Medical Doctor: IVONNE FLETCHER 59-year-old male with a history of diabetes and coronary artery disease presents to the emergency department for right ear pain. Denies any chills or fever, chest pain or shortness of breath, nausea. Medication Reconciliation Allergies: Coded Allergies: tramadol HCl (Unverified Allergy, Unknown, 03/10/25) Scheduled Albuterol Sulfate (Proventil Hfa), 2 PUFFS INH Q4H Amlodipine Besylate (Norvasc), 1 TAB PO DAILY, (Reported) Aspirin (Ecotrin*), 81 MG PO DAILY Atorvastatin Calcium (Atorvastatin Calcium), 1 TAB PO DAILY, (Reported) Budesonide/Formoterol Fumarate (Symbicort 80-4.5 Mcg Inhaler), 2 PUFFS INH Q12H Carvedilol (Carvedilol), 1 TAB PO BID, (Reported) Ciprofloxacin Hcl/Hc Otic Susp* (Cipro Hc Otic Susp*), 3 DROP RIGHT EAR Q12H Folic Acid* (Folic Acid*), 1 TAB PO DAILY Hydrochlorothiazide (Hydrochlorothiazide), 1 TAB PO DAILY, (Reported) Insulin Regular, Human* (Humulin R 3 Ml *), 2-10 UNITS SQ SLIDING SCALE, (Reported) Insulin Regular, Human* (Humulin R 3 Ml *), 2-10 UNITS SQ SLIDING SCALE Irbesartan (Irbesartan), 1 TAB PO DAILY, (Reported) Lactobacillus Rhamnosus (Culturelle), 1 EACH PO BID Multivitamin (Multi-Vitamin Daily), 1 TAB PO DAILY Nicotine 14 MG Patch* (Habitrol 14 MG Patch*), 1 PATCH TD DAILY Nitroglycerin (Nitroglycerin), 1 TAB SL PRN, (Reported) Pantoprazole Sodium (Pantoprazole Sodium), 40 MG PO BKF Thiamine HCl (Vitamin B-1), 2 TAB PO DAILY Tiotropium [place] (Spiriva), 1 CAP INH DAILY, (Reported) Miscellaneous Medications Insulin Lispro (Admelog), SQ, (Reported) Durable Medical Equipment Syringe & Needle,Insulin,1 ml (Insulin Syringe), SYR SUBCUT Q6H, (DME) Past Medical History Past Medical History: Peripheral Neuropathy, Angina, Coronary Artery Disease, Hypertension, Myocardial Infarction, Bronchitis, GI Bleed, Hepatitis C, Peptic Ulcer Disease, Chronic Kidney Disease, Renal Disease, Diabetes, Testicular Cancer Past Surgical History: orthopedic surgeries, other Patient History: (CAD) Coronary arteriosclerosis (COPD) Chronic obstructive lung disease (CVA) Cerebrovascular accident (Cancer) Malignant carcinoid tumor FH: lupus Alcohol Use: Heavy Drug Use: none Lives with: Family Occupation: employed Review of Systems ROS As stated above in the HPI, otherwise all systems are reviewed and negative. Physical Exam Physical Exam General: Alert, no apparent distress. HEENT: PERRL, EOMI, no injection, moist mucous membranes. Pain with tragus pull on right. Exudate and erythema in canal. Normal left ear. Neck: Full range of motion. Respiratory: Lungs clear, no respiratory distress. Chest: No accessory muscle use. Cardiovascular: Regular rate and rhythm, no murmurs. Gastrointestinal: Soft, nontender, nondistended. Bowels sounds present. Extremities: Presents in wheelchair with leg braces on bilat. Neurologic: Oriented x4. Psychiatric: Normal mood and affect. Skin: Normal color, warm and dry. No edema, no ecchymosis. Progress Results/Orders Results/Orders Vital Signs 03/10/25 11:24 Temp 97.8 Pulse 97 Resp 18 B/P (MAP) 130/88 Pulse Ox 100 O2 Flow Rate 0 Medical Decision Making Additional information obtaine: old records Findings Last visit to this facility was in 2023 for placement of a cardiac stent. Ear Diff. Dx: Considerations: Include: Abrasion, Cerumen impaction, Foreign body, Otitis externa, Barotrauma, Otitis media, Perforation, Referred pain- dental, Referred pain-pharyngitis, Referred pain-sinusitis, Referred pain-TMJ syn. Eye Diff. Dx: Considerations: Include: Other Nose Diff. Dx: Considerations: Include: Other Tooth Diff. Dx: Considerations: Include: Other Throat Diff Dx: Considerations: Include: Other Departure Time of Disposition: 11:29 Disposition: 01 HOME / SELF CARE / HOMELESS Impression: Primary Impression: External otitis of right ear Condition: Stable Discharge Instructions: Otitis Externa Additional Instructions: Use the antibiotic ear drops as prescribed. Follow up with your primary care provider within the next week. Return if worse. Referrals: NO PRIMARY CARE PROVIDER (PCP) Prescriptions Ciprofloxacin Hcl/Hc Otic Susp* (Cipro Hc Otic Susp*) 10 Ml Bottle 3 DROP RIGHT EAR Q12H for 7 Days, #10 ML Prov: RAFIA REESE CUSHION SEWER 03/10/25 Education Educated: Patient Educated regarding: diagnosis, treatment, prognosis, need for follow up Signature Scribe Signature: x Attestation: The note accurately reflects work and decisions made by me.Rafia Reese - EMELIA 03/10/25 11:31 RAFIA REESE NP Mar 10, 2025 11:30
[2025-03-10 11:34] VITALS: TEMP 97.8
== END 2025-03-10 11:41 | disposition home or self-care (01) ==
LOC: ER 11:21
DX: H60.91 Unspecified otitis externa, right ear (principal); E11.22 Type 2 diabetes mellitus with diabetic chronic kidney disease; E11.42 Type 2 diabetes mellitus with diabetic polyneuropathy; I12.9 Hypertensive chronic kidney disease with stage 1 through stage 4 chronic kidney disease, or unspecified chronic kidney disease; N18.9 Chronic kidney disease, unspecified; J44.9 Chronic obstructive pulmonary disease, unspecified; I25.10 Atherosclerotic heart disease of native coronary artery without angina pectoris; I25.2 Old myocardial infarction; Z88.6 Allergy status to analgesic agent
CPT/HCPCS: 99283